=== PATIENT | female | born 1990 | race Caucasian/White ===

== ENCOUNTER 2016-04-08 15:37 | Emergency (ER) | payer OTHER ==
[~2016-04-08 15:37] MED LIST: ACET500C PO; ALPR1TAB3 PO; GLYB125TA PO; IBUP80TA PO; MOTR200T44 PO; NORCOTAB PO; PERC5TAB6 PO; PERCOCET PO; PROZ20CA11 PO; PROZ40CA PO; STUATAB PO; SUCR1TAB56 PO; TRAZ50TA4 PO; TYLE325T5 PO; VITAPRTA PO; [UNRECOGNIZED DRUG - OTHER]
[2016-04-08] MEDS ORDERED: cefTRIAXone SOD 250 MG VIAL (J0696) As Ordered ONE (17:40)
[2016-04-08] MEDS ORDERED: EXPOSURE KIT-ADULT 7 DAY SUPPLY As Ordered ONE (17:40)
[2016-04-08] MEDS ORDERED: metroNIDAZOLE (FLAGYL) 500 MG TAB As Ordered ONE (17:40)
[2016-04-08] MEDS ORDERED: AZITHROMYCIN 250 MG TAB As Ordered ONE (17:41)
[2016-04-08] MEDS ORDERED: ULIPRISTAL ACETATE 30 MG TAB (ELLA) As Ordered ONE (17:41)
[2016-04-08] MEDS ORDERED: LIDOCAINE 1% MDV 20ML VIAL As Ordered ONE (17:41)
[2016-04-08] MEDS ORDERED: [UNRECOGNIZED DRUG - OTHER] As Ordered ONE ×2 (17:41→18:59)
[2016-04-08 17:55] LABS: BASO % 0.6 % (0.0-1.0); EOS # 0.3 K/mm3 (0.0-0.50); EOS % 3.8 % (0.0-3.0); LARGE UNSTAINED CELL # 0.1 K/mm3 (0.0-0.4); LARGE UNSTAINED CELL % 1.3 % (0.0-4.0); LYMPH # 2.2 K/mm3 (1.5-6.5); LYMPH % 30.9 % (24.0-44.0); MEAN CORPUSCULAR HEMOGLOBIN 28.7 pg (27.0-33.0); MEAN CORPUSCULAR HGB CONC 33.2 g/dl (32.0-36.5); MEAN CORPUSCULAR VOLUME 86.7 fl (80.0-96.0); MONO # 0.2 K/mm3 (0.0-0.8); MONO % 3.3 % (0.0-5.0); NEUTROPHILS # 4.2 K/mm3 (1.8-7.7); NEUTROPHILS % 60.1 % (36.0-66.0); PLATELET COUNT, AUTOMATED 168 k/mm3 (150-450); RED CELL DISTRIBUTION WIDTH 13.1 % (11.5-14.5)
[2016-04-08 18:24] LABS: ALBUMIN 3.8 GM/DL (3.2-5.2); ALKALINE PHOSPHATASE 73 U/L (45-117); ALT/SGPT 24 U/L (12-78); ANION GAP 5 MEQ/L (8-16); AST/SGOT 14 U/L (15-37); BILIRUBIN,TOTAL 0.3 MG/DL (0.2-1.0); BLOOD UREA NITROGEN 6 MG/DL (7-18); CALCIUM LEVEL 9.3 MG/DL (8.5-10.1); CARBON DIOXIDE LEVEL 31 MEQ/L (21-32); CHLORIDE LEVEL 108 MEQ/L (98-107); CREATININE FOR GFR 0.74 MG/DL (0.55-1.02); GLOMERULAR FILTRATION RATE > 60.0 (>60); GLUCOSE, FASTING 97 MG/DL (70-105); POTASSIUM SERUM 3.4 MEQ/L (3.5-5.1); SODIUM LEVEL 144 MEQ/L (136-145)
[2016-04-08 19:04] LABS: CONTROL LINE INT CTR LINE PRESENT; HIV SCRN NEGATIVE (NEGATIVE); HIV SCRN1 NEGATIVE (NEGATIVE)
[2016-04-08] MEDS ORDERED: ONDANSETRON 4 MG ORAL DISINTEGRATING TAB (S0181) As Ordered ONE (19:14)
[2016-04-08 19:21] LABS: CONTROL LINE HCG INT CTR LINE PRESENT
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
[2016-04-09 10:30] LABS: HEPATITIS B SURFACE ANTIBODY POSITIVE (POSITIVE)
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
== END 2016-04-08 21:48 | disposition home or self-care (01) ==
LOC: M ED 15:37
DX: T76.21XA Adult sexual abuse, suspected, initial encounter (principal); F41.9 Anxiety disorder, unspecified; F32.9 Major depressive disorder, single episode, unspecified; Z87.19 Personal history of other diseases of the digestive system; F17.210 Nicotine dependence, cigarettes, uncomplicated; Y92.039 Unspecified place in apartment as the place of occurrence of the external cause; Z79.899 Other long term (current) drug therapy
CPT/HCPCS: 36415; 80053; 84703; 85025; 86706; 86780; 86803; 87070; 87077; 87081; 87110; 87186; 87210; 87340; 87529; 87806; 90471; 90744; 96372; 99285; J0696

== ENCOUNTER 2016-06-02 20:28 | Emergency (ER) | payer OTHER ==
[2016-06-02 21:13] LABS: MEAN CORPUSCULAR HEMOGLOBIN 28.9 pg (27.0-33.0); MEAN CORPUSCULAR HGB CONC 31.7 g/dl (32.0-36.5); MEAN CORPUSCULAR VOLUME 91.3 fl (80.0-96.0); RED CELL DISTRIBUTION WIDTH 13.9 % (11.5-14.5); WHITE BLOOD COUNT 7.2 K/mm3 (4.0-10.0)
[2016-06-02 21:52] LABS: METHADONE URINE NEGATIVE (NEGATIVE)
[2016-06-02 22:00] LABS: ALKALINE PHOSPHATASE 85 U/L (45-117); ALT/SGPT 35 U/L (12-78); AST/SGOT 45 U/L (15-37); BILIRUBIN,DIRECT < 0.1 MG/DL (0.0-0.2); BILIRUBIN,TOTAL 0.2 MG/DL (0.2-1.0); BLOOD UREA NITROGEN 11 MG/DL (7-18); CARBON DIOXIDE LEVEL 22 MEQ/L (21-32); CHLORIDE LEVEL 112 MEQ/L (98-107); CREATININE FOR GFR 0.59 MG/DL (0.55-1.02); GLUCOSE, FASTING 73 MG/DL (70-105); POTASSIUM SERUM 4.1 MEQ/L (3.5-5.1); SODIUM LEVEL 145 MEQ/L (136-145); TOTAL PROTEIN 6.9 GM/DL (6.4-8.2)
[2016-06-02 22:28] LABS: CALCIUM LEVEL 8.1 MG/DL (8.5-10.1)
[2016-06-02 22:30] LABS: ALBUMIN 3.6 GM/DL (3.2-5.2); ALBUMIN/GLOBULIN RATIO 1.09 (1.00-1.93); ANION GAP 11 MEQ/L (8-16)
[2016-06-02 22:31] LABS: CONTROL LINE HCG INT CTR LINE PRESENT
[2016-06-02 23:30] VITALS: BP 104/58
== END 2016-06-02 23:50 | disposition home or self-care (01) ==
LOC: M ED 21:49
DX: F32.9 Major depressive disorder, single episode, unspecified (principal); F41.9 Anxiety disorder, unspecified; K21.9 Gastro-esophageal reflux disease without esophagitis; Z79.899 Other long term (current) drug therapy
CPT/HCPCS: 36415; 80048; 80076; 80306; 84443; 84703; 85027; 99285; G0480

== ENCOUNTER → 2017-03-19 | Outpatient (CLI) | payer OTHER ==
[~2017-03-19] MED LIST changes: +PERC5TAB12 PO; -PERC5TAB6 PO; +TRAZ50TA11 PO; -TRAZ50TA4 PO
--- NOTE | 2017-03-19 10:23 | REP ---
Clinical: Acute bronchitis . Comparison: 07/16/2013 . Technique: PA and lateral. Findings: The mediastinum and cardiac silhouette are normal. The lung ross are clear and without acute consolidation, effusion, or pneumothorax. The skeletal structures are intact and normal. Impression: 1. No acute cardiopulmonary process. Signed by Dimitri Colon MD 03/19/2017 10:15 A
[2017-03-19 12:48] LABS: BASO % 0.4 % (0.0-1.0); EOS # 0.1 10^3/uL (0.0-0.50); IMMATURE GRANULOCYTE % 0.7 % (0-0); LYMPH # 2.9 10^3/uL (1.5-6.5); LYMPH % 28.7 % (24.0-44.0); MEAN CORPUSCULAR HEMOGLOBIN 29.6 pg (27.0-33.0); MEAN CORPUSCULAR HGB CONC 33.6 g/dl (32.0-36.5); MEAN CORPUSCULAR VOLUME 88.2 fl (80.0-96.0); MONO # 0.7 10^3/uL (0.0-0.8); MONO % 6.4 % (0.0-5.0); NEUTROPHILS # 6.4 10^3/uL (1.8-7.7); NEUTROPHILS % 62.8 % (36.0-66.0); PLATELET COUNT, AUTOMATED 205 10^3/uL (150-450); RED CELL DISTRIBUTION WIDTH 13.2 % (11.5-14.5); WHITE BLOOD COUNT 10.2 10^3/uL (4.0-10.0)
== END ==
LOC: M LABDRWAD 09:35 → M ADAMS 09:35
PROVIDERS: ATTEND Physician Assistant Medical
DX: J20.9 Acute bronchitis, unspecified (principal)

== ENCOUNTER → 2017-06-14 | Outpatient (CLI) | payer OTHER ==
[2017-06-14 13:35] LABS: BASO % 0.5 % (0.0-1.0); EOS # 0.2 10^3/uL (0.0-0.50); EOS % 1.7 % (0.0-3.0); HEMATOCRIT 42.1 % (36.0-47.0); HEMOGLOBIN 14.2 g/dl (12.0-16.0); IMMATURE GRANULOCYTE % 0.2 % (0-3.0); LYMPH # 1.8 10^3/uL (1.5-6.5); LYMPH % 21.4 % (24.0-44.0); MEAN CORPUSCULAR HGB CONC 33.7 g/dl (32.0-36.5); MONO # 0.4 10^3/uL (0.0-0.8); MONO % 4.3 % (0.0-5.0); NEUTROPHILS # 6.2 10^3/uL (1.8-7.7); NEUTROPHILS % 71.9 % (36.0-66.0); PLATELET COUNT, AUTOMATED 171 10^3/uL (150-450); RED BLOOD COUNT 4.73 10^6/uL (4.00-5.40); RED CELL DISTRIBUTION WIDTH 13.6 % (11.5-14.5); WHITE BLOOD COUNT 8.6 10^3/uL (4.0-10.0)
[2017-06-14 14:06] LABS: GLUCOSE CHALLENGE TEST 1 HOUR 128 MG/DL (LESS THAN 140)
[2017-06-14 14:36] LABS: RUBELLA IgG QUALITATIVE IMMUNE (IMMUNE)
[2017-06-14 14:37] LABS: HBsAg Prenatal NEGATIVE (NEGATIVE)
[2017-06-14 15:05] LABS: HEPATITIS C VIRUS ABY INDEX 0.1 INDEX (<0.8)
[2017-06-14 15:05] LABS: HIV 1&2 SCREEN CENTAUR NEGATIVE (NEGATIVE)
[2017-06-14 15:29] LABS: CHLAMYDIA DNA AMPLIFICATION NEGATIVE (NEGATIVE); GC DNA AMPLIFICATION NEGATIVE (NEGATIVE)
== END ==
LOC: M SMT 07:58
DX: Z34.81 Encounter for supervision of other normal pregnancy, first trimester (principal); Z3A.08 8 weeks gestation of pregnancy
CPT/HCPCS: 82950

== ENCOUNTER → 2017-07-11 | Outpatient (REF) | payer OTHER | LOC: M LAB REF 16:59 | DX: Z34.81 Encounter for supervision of other normal pregnancy, first trimester (principal) ==

== ENCOUNTER 2017-07-25 03:48 | Emergency (ER) | payer OTHER ==
[2017-07-25] MEDS: diphenhydrAMINE INJ 50MG/ML VIAL (J1200) IV (06:34)
[2017-07-25] MEDS: METOCLOPRAMIDE INJ 10MG/2ML VIAL (J2765) IV (06:45)
[2017-07-25] MEDS: NS 1,000 ML IV (06:45)
[2017-07-25 06:52] LABS: BASO % 0.4 % (0.0-1.0); EOS # 0.1 10^3/uL (0.0-0.50); EOS % 1.1 % (0.0-3.0); HEMATOCRIT 36.3 % (36.0-47.0); HEMOGLOBIN 12.7 g/dl (12.0-15.5); IMMATURE GRANULOCYTE % 0.4 % (0-3.0); LYMPH # 1.9 10^3/uL (1.5-6.5); LYMPH % 22.6 % (24.0-44.0); MEAN CORPUSCULAR HEMOGLOBIN 30.4 pg (27.0-33.0); MEAN CORPUSCULAR VOLUME 86.8 fl (80.0-96.0); MONO # 0.5 10^3/uL (0.0-0.8); NEUTROPHILS % 69.5 % (36.0-66.0); PLATELET COUNT, AUTOMATED 146 10^3/uL (150-450); RED BLOOD COUNT 4.18 10^6/uL (4.00-5.40); RED CELL DISTRIBUTION WIDTH 14.4 % (11.5-14.5); WHITE BLOOD COUNT 8.5 10^3/uL (4.0-10.0)
[2017-07-25 07:07] LABS: KETONE, URINE AUTO RFX TRACE mg/dL (NEGATIVE); LEUKOCYTE ESTERASE UR AUTO RFX NEGATIVE (NEGATIVE); MUCUS, URINE RFX SMALL (NEGATIVE); NITRITE, URINE AUTO RFX NEGATIVE (NEGATIVE); RBC, URINE AUTO RFX 3 /HPF (0-3); SPECIFIC GRAVITY UR AUTO RFX 1.018 (1.002-1.035); SQUAM EPITHELIAL CELL UR AURFX 1 /HPF (0-6); WBC, URINE AUTO RFX 2 /HPF (0-3)
[2017-07-25 07:16] LABS: ALBUMIN 3.2 GM/DL (3.2-5.2); ALBUMIN/GLOBULIN RATIO 0.89 (1.00-1.93); ALKALINE PHOSPHATASE 62 U/L (45-117); ALT/SGPT 46 U/L (12-78); ANION GAP 8 MEQ/L (8-16); AST/SGOT 31 U/L (7-37); BILIRUBIN,DIRECT < 0.1 MG/DL (0.0-0.2); BILIRUBIN,TOTAL 0.3 MG/DL (0.2-1.0); BLOOD UREA NITROGEN 8 MG/DL (7-18); CALCIUM LEVEL 8.4 MG/DL (8.5-10.1); CARBON DIOXIDE LEVEL 23 MEQ/L (21-32); CHLORIDE LEVEL 109 MEQ/L (98-107); CK-MB VALUE MASS < 1.0 NG/ML (<3.6); CPK CREATINE PHOSPHOKINASE 67 U/L (26-192); CREATININE FOR GFR 0.45 MG/DL (0.55-1.30); GLOMERULAR FILTRATION RATE > 60.0 (>60); GLUCOSE, FASTING 91 MG/DL (70-100); MAGNESIUM LEVEL 2.1 MG/DL (1.8-2.4); MB/CK RELATIVE INDEX 1.49 (< OR =4); POTASSIUM SERUM 4.1 MEQ/L (3.5-5.1); SODIUM LEVEL 140 MEQ/L (136-145); TOTAL PROTEIN 6.8 GM/DL (6.4-8.2); TROPONIN I < 0.02 NG/ML (< 0.10)
== END 2017-07-25 09:16 | disposition home or self-care (01) ==
LOC: M ED 03:48
DX: O99.89 Other specified diseases and conditions complicating pregnancy, childbirth and the puerperium (principal); R51 Headache; E11.9 Type 2 diabetes mellitus without complications; O99.512 Diseases of the respiratory system complicating pregnancy, second trimester; J45.909 Unspecified asthma, uncomplicated; O99.342 Other mental disorders complicating pregnancy, second trimester; F33.9 Major depressive disorder, recurrent, unspecified; Z3A.15 15 weeks gestation of pregnancy; O99.332 Smoking (tobacco) complicating pregnancy, second trimester; F17.210 Nicotine dependence, cigarettes, uncomplicated
CPT/HCPCS: J1200

== ENCOUNTER 2017-07-29 19:24 | Emergency (ER) | payer OTHER ==
[2017-07-29 20:38] LABS: BASO % 0.2 % (0.0-1.0); EOS % 0.5 % (0.0-3.0); HEMATOCRIT 36.6 % (36.0-47.0); HEMOGLOBIN 12.9 g/dl (12.0-15.5); IMMATURE GRANULOCYTE % 0.2 % (0-3.0); LYMPH # 1.4 10^3/uL (1.5-6.5); LYMPH % 23.8 % (24.0-44.0); MEAN CORPUSCULAR HEMOGLOBIN 30.3 pg (27.0-33.0); MEAN CORPUSCULAR HGB CONC 35.2 g/dl (32.0-36.5); MEAN CORPUSCULAR VOLUME 85.9 fl (80.0-96.0); MONO # 0.5 10^3/uL (0.0-0.8); NEUTROPHILS # 4.1 10^3/uL (1.8-7.7); NEUTROPHILS % 67.3 % (36.0-66.0); PLATELET COUNT, AUTOMATED 130 10^3/uL (150-450); RED BLOOD COUNT 4.26 10^6/uL (4.00-5.40); RED CELL DISTRIBUTION WIDTH 14.5 % (11.5-14.5)
[2017-07-29 20:47] LABS: CALCIUM OXALATE CRYSTALS RFX SMALL; KETONE, URINE AUTO RFX TRACE mg/dL (NEGATIVE); MUCUS, URINE RFX SMALL (NEGATIVE); NITRITE, URINE AUTO RFX NEGATIVE (NEGATIVE); RBC, URINE AUTO RFX 7 /HPF (0-3); SPECIFIC GRAVITY UR AUTO RFX 1.024 (1.002-1.035); SQUAM EPITHELIAL CELL UR AURFX 6 /HPF (0-6)
[2017-07-29 21:00] LABS: LEUKOCYTE ESTERASE UR AUTO RFX 3+ (NEGATIVE); WBC, URINE AUTO RFX 23 /HPF (0-3)
[2017-07-29 21:02] LABS: AMPHETAMINES LEVEL URINE NEGATIVE (NEGATIVE); BARBITURATES URINE NEGATIVE (NEGATIVE); BENZODIAZEPINES URINE NEGATIVE (NEGATIVE); CANNABINOIDS URINE POSITIVE (NEGATIVE); COCAINE METABOLITE URINE NEGATIVE (NEGATIVE); METHADONE URINE NEGATIVE (NEGATIVE); OPIATES URINE NEGATIVE (NEGATIVE); PHENCYCLIDINE URINE NEGATIVE (NEGATIVE)
[2017-07-29 21:19] LABS: ANION GAP 9 MEQ/L (8-16); BLOOD UREA NITROGEN 6 MG/DL (7-18); CALCIUM LEVEL 8.8 MG/DL (8.5-10.1); CARBON DIOXIDE LEVEL 22 MEQ/L (21-32); CHLORIDE LEVEL 104 MEQ/L (98-107); CREATININE FOR GFR 0.56 MG/DL (0.55-1.30); ETHYL ALCOHOL (ETHANOL) < 0.003 % (0.000-0.010); GLOMERULAR FILTRATION RATE > 60.0 (>60); GLUCOSE, FASTING 81 MG/DL (70-100); HCG, SERUM QUANTITATIVE 28651 MIU/ML; MAGNESIUM LEVEL 1.8 MG/DL (1.8-2.4); POTASSIUM SERUM 3.6 MEQ/L (3.5-5.1); SODIUM LEVEL 135 MEQ/L (136-145); THYROID STIMULATING HORMONE 0.952 uIU/ML (0.358-3.740)
[2017-07-29 21:22] LABS: LACTIC ACID SEPSIS PROTOCOL 0.9 MMOL/L (0.4-2.0)
[2017-07-29] MEDS ORDERED: METOCLOPRAMIDE INJ 10MG/2ML VIAL (J2765) As Ordered (21:31)
[2017-07-29] MEDS: METOCLOPRAMIDE INJ 10MG/2ML VIAL (J2765) IV (21:45)
[2017-07-29] MEDS: IPRATROPIUM 0.5MG/ALBUTEROL 2.5MG INH SOL UD 3ML (DUONEB)(J7620) NEB ×2 (21:45→22:59)
[2017-07-29] MEDS: NS 500 ML IV (22:00)
[2017-07-29] MEDS ORDERED: ACETAMINOPHEN TAB 650MG DOSE (2X325MG) As Ordered (22:42)
[2017-07-29] MEDS: ACETAMINOPHEN TAB 650MG DOSE (2X325MG) PO (23:00)
[2017-07-29] MEDS ORDERED: AZITHROMYCIN INJ 500 MG, VIAL MATE ADAPTER 1 EACH in D5W 250 ML IV (23:00)
[2017-07-29] MEDS: AZITHROMYCIN 250 MG TAB PO (23:15)
[2017-07-29] MEDS: methylPREDNISolone INJ 125 MG/2 ML VIAL (J2930) IV (23:47)
== END 2017-07-29 23:48 | disposition home or self-care (01) ==
LOC: M ED 19:24
DX: O99.511 Diseases of the respiratory system complicating pregnancy, first trimester (principal); J20.9 Acute bronchitis, unspecified; Z3A.12 12 weeks gestation of pregnancy; J45.909 Unspecified asthma, uncomplicated; O24.911 Unspecified diabetes mellitus in pregnancy, first trimester; O99.611 Diseases of the digestive system complicating pregnancy, first trimester; K21.9 Gastro-esophageal reflux disease without esophagitis; O99.331 Smoking (tobacco) complicating pregnancy, first trimester; F17.210 Nicotine dependence, cigarettes, uncomplicated; F12.20 Cannabis dependence, uncomplicated
CPT/HCPCS: J2765

== ENCOUNTER → 2017-08-16 | Outpatient (CLI) | payer OTHER | LOC: M RAD 10:51 | DX: Z34.82 Encounter for supervision of other normal pregnancy, second trimester (principal) | CPT/HCPCS: 76816 ==

== ENCOUNTER 2017-08-17 19:17 | Emergency (ER) | payer OTHER ==
[2017-08-17 19:49] LABS: BASO % 0.3 % (0.0-1.0); EOS # 0.1 10^3/uL (0.0-0.50); EOS % 1.4 % (0.0-3.0); HEMATOCRIT 33.6 % (36.0-47.0); HEMOGLOBIN 11.7 g/dl (12.0-15.5); IMMATURE GRANULOCYTE % 0.2 % (0-3.0); LYMPH # 2.4 10^3/uL (1.5-6.5); LYMPH % 26.8 % (24.0-44.0); MEAN CORPUSCULAR HEMOGLOBIN 30.4 pg (27.0-33.0); MEAN CORPUSCULAR HGB CONC 34.8 g/dl (32.0-36.5); MEAN CORPUSCULAR VOLUME 87.3 fl (80.0-96.0); MONO # 0.5 10^3/uL (0.0-0.8); MONO % 5.6 % (0.0-5.0); NEUTROPHILS # 5.9 10^3/uL (1.8-7.7); NEUTROPHILS % 65.7 % (36.0-66.0); PLATELET COUNT, AUTOMATED 134 10^3/uL (150-450); RED BLOOD COUNT 3.85 10^6/uL (4.00-5.40); RED CELL DISTRIBUTION WIDTH 14.6 % (11.5-14.5); WHITE BLOOD COUNT 9.1 10^3/uL (4.0-10.0)
[2017-08-17] MEDS: NS 1,000 ML IV ×2 (20:00→22:14)
[2017-08-17] MEDS: METOCLOPRAMIDE INJ 10MG/2ML VIAL (J2765) IV (20:00)
[2017-08-17 20:18] LABS: ANION GAP 8 MEQ/L (8-16); BLOOD UREA NITROGEN 6 MG/DL (7-18); CALCIUM LEVEL 8.5 MG/DL (8.5-10.1); CARBON DIOXIDE LEVEL 22 MEQ/L (21-32); CHLORIDE LEVEL 110 MEQ/L (98-107); CREATININE FOR GFR 0.45 MG/DL (0.55-1.30); GLOMERULAR FILTRATION RATE > 60.0 (>60); GLUCOSE, FASTING 91 MG/DL (70-100); POTASSIUM SERUM 3.2 MEQ/L (3.5-5.1); SODIUM LEVEL 140 MEQ/L (136-145)
[2017-08-17 21:06] LABS: KETONE, URINE AUTO RFX 2+ mg/dL (NEGATIVE); MUCUS, URINE RFX SMALL (NEGATIVE); NITRITE, URINE AUTO RFX NEGATIVE (NEGATIVE); RBC, URINE AUTO RFX 2 /HPF (0-3); SPECIFIC GRAVITY UR AUTO RFX 1.017 (1.002-1.035); SQUAM EPITHELIAL CELL UR AURFX 2 /HPF (0-6); WBC, URINE AUTO RFX 4 /HPF (0-3)
[2017-08-17 21:08] LABS: LEUKOCYTE ESTERASE UR AUTO RFX TRACE (NEGATIVE)
[2017-08-17] MEDS: POTASSIUM CHLORIDE 10 MEQ SR TABLET PO (23:31)
[2017-08-20 15:50] LABS: BEDSIDE GLUCOSE 113 MG/DL (70-105)
== END 2017-08-17 23:56 | disposition home or self-care (01) ==
LOC: M ED 19:17
DX: O21.0 Mild hyperemesis gravidarum (principal); O99.330 Smoking (tobacco) complicating pregnancy, unspecified trimester; F17.210 Nicotine dependence, cigarettes, uncomplicated; Z3A.00 Weeks of gestation of pregnancy not specified
CPT/HCPCS: J2765

== ENCOUNTER → 2017-09-11 | Outpatient (CLI) | payer OTHER | LOC: M RAD 08:55 | DX: Z34.82 Encounter for supervision of other normal pregnancy, second trimester (principal) | CPT/HCPCS: 76816 ==

== ENCOUNTER → 2017-10-02 | Outpatient (REF) | payer OTHER | LOC: M LAB REF 11:43 | DX: Z34.82 Encounter for supervision of other normal pregnancy, second trimester (principal); Z36.89 Encounter for other specified antenatal screening | CPT/HCPCS: 87086 ==

== ENCOUNTER → 2017-10-30 | Outpatient (CLI) | payer OTHER ==
[2017-10-30 12:57] LABS: HEMATOCRIT 36.4 % (36.0-47.0); HEMOGLOBIN 12.5 g/dl (12.0-15.5); MEAN CORPUSCULAR HEMOGLOBIN 31.2 pg (27.0-33.0); MEAN CORPUSCULAR HGB CONC 34.3 g/dl (32.0-36.5); MEAN CORPUSCULAR VOLUME 90.8 fl (80.0-96.0); PLATELET COUNT, AUTOMATED 149 10^3/uL (150-450); RED BLOOD COUNT 4.01 10^6/uL (4.00-5.40); RED CELL DISTRIBUTION WIDTH 13.8 % (11.5-14.5); WHITE BLOOD COUNT 10.7 10^3/uL (4.0-10.0)
[2017-10-30 13:36] LABS: GLUCOSE CHALLENGE TEST 1 HOUR 142 MG/DL (LESS THAN 140)
== END ==
LOC: M SMT 11:24
DX: Z34.82 Encounter for supervision of other normal pregnancy, second trimester (principal)
CPT/HCPCS: 82950

== ENCOUNTER → 2017-11-13 | Outpatient (REF) | payer OTHER | LOC: M LAB REF 13:56 | DX: Z34.83 Encounter for supervision of other normal pregnancy, third trimester (principal) ==

== ENCOUNTER 2017-11-25 13:12 | Outpatient (CLI) | payer OTHER ==
[2017-11-25 13:34] LABS: BEDSIDE GLUCOSE 173 MG/DL (70-105)
[2017-11-25 14:29] LABS: BASO # 0.1 10^3/uL (0.0-0.2); BASO % 0.4 % (0.0-1.0); EOS # 0.1 10^3/uL (0.0-0.50); HEMATOCRIT 37.3 % (36.0-47.0); HEMOGLOBIN 12.9 g/dl (12.0-15.5); IMMATURE GRANULOCYTE % 0.7 % (0-3.0); LYMPH # 2.3 10^3/uL (1.5-6.5); LYMPH % 18.6 % (24.0-44.0); MEAN CORPUSCULAR HEMOGLOBIN 31.7 pg (27.0-33.0); MEAN CORPUSCULAR HGB CONC 34.6 g/dl (32.0-36.5); MEAN CORPUSCULAR VOLUME 91.6 fl (80.0-96.0); MONO # 0.5 10^3/uL (0.0-0.8); NEUTROPHILS # 9.3 10^3/uL (1.8-7.7); NEUTROPHILS % 75.3 % (36.0-66.0); PLATELET COUNT, AUTOMATED 161 10^3/uL (150-450); RED BLOOD COUNT 4.07 10^6/uL (4.00-5.40); RED CELL DISTRIBUTION WIDTH 13.7 % (11.5-14.5); WHITE BLOOD COUNT 12.4 10^3/uL (4.0-10.0)
[2017-11-25] MEDS: NS 1,000 ML IV (14:56)
[2017-11-25 14:59] LABS: APPEARANCE, URINE HAZY (CLEAR); BACTERIA, URINE AUTO NEGATIVE (NEGATIVE); BILIRUBIN, URINE AUTO NEGATIVE (NEGATIVE); BLOOD, URINE BLOOD NEGATIVE (NEGATIVE); COLOR, URINE YELLOW (YELLOW); GLUCOSE, URINE (UA) AUTO 1+ mg/dL (NEGATIVE); KETONE, URINE AUTO NEGATIVE (NEGATIVE); LEUKOCYTE ESTERASE, URINE AUTO NEGATIVE (NEGATIVE); MUCUS, URINE SMALL (NEGATIVE); NITRITE, URINE AUTO NEGATIVE (NEGATIVE); PROTEIN, URINE AUTO NEGATIVE (NEGATIVE); RBC, URINE AUTO 1 /HPF (0-3); SPECIFIC GRAVITY URINE AUTO 1.011 (1.002-1.035); SQUAMOUS EPITHELIAL CELL UR AU 1 /HPF (0-6); UROBILINOGEN, URINE AUTO 0.2 mg/dL (0.0-2.0); WBC, URINE AUTO 1 /HPF (0-3)
[2017-11-25 15:05] LABS: LACTIC ACID SEPSIS PROTOCOL 1.5 MMOL/L (0.4-2.0)
[2017-11-25 15:07] LABS: ALBUMIN 2.8 GM/DL (3.2-5.2); ALBUMIN/GLOBULIN RATIO 0.78 (1.00-1.93); ALKALINE PHOSPHATASE 110 U/L (45-117); ALT/SGPT 17 U/L (12-78); AMYLASE 70 U/L (25-115); ANION GAP 13 MEQ/L (8-16); AST/SGOT 13 U/L (7-37); BILIRUBIN,TOTAL 0.2 MG/DL (0.2-1.0); BLOOD UREA NITROGEN 7 MG/DL (7-18); CALCIUM LEVEL 8.5 MG/DL (8.5-10.1); CARBON DIOXIDE LEVEL 18 MEQ/L (21-32); CHLORIDE LEVEL 111 MEQ/L (98-107); CREATININE FOR GFR 0.58 MG/DL (0.55-1.30); FREE T4 0.78 NG/DL (0.76-1.46); GLOMERULAR FILTRATION RATE > 60.0 (>60); GLUCOSE, FASTING 119 MG/DL (70-100); LIPASE 230 U/L (73-393); POTASSIUM SERUM 3.4 MEQ/L (3.5-5.1); SODIUM LEVEL 142 MEQ/L (136-145); TOTAL PROTEIN 6.4 GM/DL (6.4-8.2)
[2017-11-25 15:09] LABS: ESTIMATED AVERAGE GLUCOSE 100 MG/DL (60-110); HEMOGLOBIN A1c 5.1 %
[2017-11-25 15:24] LABS: AMPHETAMINES URINE REFLEX NEGATIVE (NEGATIVE); BARBITURATES URINE REFLEX NEGATIVE (NEGATIVE); BENZODIAZEPINES URINE REFLEX NEGATIVE (NEGATIVE); CANNABINOIDS URINE REFLEX NEGATIVE (NEGATIVE); COCAINE METABOLITE URINE REFLE NEGATIVE (NEGATIVE); METHADONE URINE REFLEX NEGATIVE (NEGATIVE); OPIATES URINE REFLEX NEGATIVE (NEGATIVE); PHENCYCLIDINE URINE REFLEX NEGATIVE (NEGATIVE)
[2017-11-25 15:31] LABS: BEDSIDE GLUCOSE 51 MG/DL (70-105)
[2017-11-25 16:35] LABS: BEDSIDE GLUCOSE 110 MG/DL (70-105)
[2017-11-25 17:36] LABS: BEDSIDE GLUCOSE 76 MG/DL (70-105)
[2017-11-25] MEDS: HumuLIN R (REGULAR) INSULIN (NovoLIN R) **100U/ML** PER UNIT SC (18:06)
[2017-11-25] MEDS: HumuLIN N INSULIN (NovoLIN N) PER UNIT SC (18:06)
[2017-11-25 19:36] LABS: BEDSIDE GLUCOSE 82 MG/DL (70-105)
[2017-11-25 21:29] LABS: BEDSIDE GLUCOSE 90 MG/DL (70-105)
[2017-11-25 23:44] LABS: BEDSIDE GLUCOSE 86 MG/DL (70-105)
[2017-11-26 01:37] LABS: BEDSIDE GLUCOSE 92 MG/DL (70-105)
[2017-11-26 03:36] LABS: BEDSIDE GLUCOSE 80 MG/DL (70-105)
[2017-11-26 05:40] LABS: BEDSIDE GLUCOSE 85 MG/DL (70-105)
[2017-11-26 10:12] LABS: BEDSIDE GLUCOSE 135 MG/DL (70-105)
[2017-11-26] MEDS: HumuLIN N INSULIN (NovoLIN N) PER UNIT SC ×2 (10:14→20:09)
[2017-11-26] MEDS: HumuLIN R (REGULAR) INSULIN (NovoLIN R) **100U/ML** PER UNIT SC ×2 (10:14→20:04)
[2017-11-26 15:22] LABS: BEDSIDE GLUCOSE 92 MG/DL (70-105)
[2017-11-26] MEDS: NICOTINE 14 MG/24 HR TRANSDERMAL TD (18:25)
[2017-11-26 19:53] LABS: BEDSIDE GLUCOSE 110 MG/DL (70-105)
== END 2017-11-26 20:58 | disposition home or self-care (01) ==
LOC: M LDO 13:12
DX: O99.89 Other specified diseases and conditions complicating pregnancy, childbirth and the puerperium (principal); Z3A.32 32 weeks gestation of pregnancy; O24.913 Unspecified diabetes mellitus in pregnancy, third trimester; O99.511 Diseases of the respiratory system complicating pregnancy, first trimester; J45.909 Unspecified asthma, uncomplicated; R55 Syncope and collapse
CPT/HCPCS: 59025

== ENCOUNTER → 2017-11-29 | Outpatient (CLI) | payer OTHER | LOC: M SMT 08:02 | DX: O24.414 Gestational diabetes mellitus in pregnancy, insulin controlled (principal); Z3A.33 33 weeks gestation of pregnancy | CPT/HCPCS: 76816 ==

== ENCOUNTER → 2017-12-17 | Outpatient (REF) | payer OTHER | LOC: M LAB REF 13:26 | DX: O24.414 Gestational diabetes mellitus in pregnancy, insulin controlled (principal) ==

== ENCOUNTER → 2017-12-17 | Outpatient (CLI) | payer OTHER | LOC: M SMT 12:32 | DX: O24.414 Gestational diabetes mellitus in pregnancy, insulin controlled (principal); Z3A.35 35 weeks gestation of pregnancy | CPT/HCPCS: 76816 ==

== ENCOUNTER 2017-12-18 13:26 | Inpatient (IN) | payer OTHER ==
[2017-12-18] MEDS: BETAMETHASONE SOLUSPAN 6MG/ML INJ 5ML (J0702) IM (14:15)
[2017-12-18 14:45] LABS: BEDSIDE GLUCOSE 49 MG/DL (70-105)
[2017-12-18] MEDS: HumuLIN N INSULIN (NovoLIN N) PER UNIT SC (15:17)
[2017-12-18 15:39] LABS: BEDSIDE GLUCOSE 105 MG/DL (70-105)
[2017-12-18 19:29] LABS: BEDSIDE GLUCOSE 237 MG/DL (70-105)
[2017-12-18] MEDS: HumuLIN R (REGULAR) INSULIN (NovoLIN R) **100U/ML** PER UNIT SC (19:39)
[2017-12-18 21:22] LABS: BEDSIDE GLUCOSE 193 MG/DL (70-105)
[2017-12-19 06:20] LABS: BEDSIDE GLUCOSE 97 MG/DL (70-105)
[2017-12-19] MEDS: HumuLIN R (REGULAR) INSULIN (NovoLIN R) **100U/ML** PER UNIT SC (07:48)
[2017-12-19] MEDS: HumuLIN N INSULIN (NovoLIN N) PER UNIT SC (07:49)
[2017-12-19 10:02] LABS: BEDSIDE GLUCOSE 86 MG/DL (70-105)
[2017-12-19] MEDS: CALCIUM CARBONATE 500 MG CHEW U/D PO (13:15)
[2017-12-19] MEDS: BETAMETHASONE SOLUSPAN 6MG/ML INJ 5ML (J0702) IM (14:11)
[2017-12-19 15:18] LABS: BEDSIDE GLUCOSE 140 MG/DL (70-105)
[2017-12-19] MEDS ORDERED: INSULIN IV RATE CHANGE DOCUMENTATION ML/HR XX (18:00)
[2017-12-19 18:12] LABS: HEMATOCRIT 35.4 % (36.0-47.0); HEMOGLOBIN 12.2 g/dl (12.0-15.5); MEAN CORPUSCULAR HEMOGLOBIN 31.5 pg (27.0-33.0); MEAN CORPUSCULAR HGB CONC 34.5 g/dl (32.0-36.5); MEAN CORPUSCULAR VOLUME 91.5 fl (80.0-96.0); PLATELET COUNT, AUTOMATED 110 10^3/uL (150-450); RED BLOOD COUNT 3.87 10^6/uL (4.00-5.40); RED CELL DISTRIBUTION WIDTH 13.8 % (11.5-14.5); WHITE BLOOD COUNT 16.5 10^3/uL (4.0-10.0)
[2017-12-19] MEDS: miSOPROStol 50 MCG 1/2 TAB (S0191) SL ×2 (18:21→22:48)
[2017-12-19] MEDS: NS 1,000 ML IV (18:29)
[2017-12-19] MEDS: PENICILLIN G POTASSIUM IV 5 MU in D5W MINI-BAG PLUS 100 ML IV (18:30)
[2017-12-19 18:35] LABS: BEDSIDE GLUCOSE 137 MG/DL (70-105)
[2017-12-19 18:35] LABS: AMPHETAMINES URINE REFLEX NEGATIVE (NEGATIVE); BARBITURATES URINE REFLEX NEGATIVE (NEGATIVE); BENZODIAZEPINES URINE REFLEX NEGATIVE (NEGATIVE); CANNABINOIDS URINE REFLEX NEGATIVE (NEGATIVE); COCAINE METABOLITE URINE REFLE NEGATIVE (NEGATIVE); METHADONE URINE REFLEX NEGATIVE (NEGATIVE); OPIATES URINE REFLEX NEGATIVE (NEGATIVE); PHENCYCLIDINE URINE REFLEX NEGATIVE (NEGATIVE)
[2017-12-19 19:50] LABS: BEDSIDE GLUCOSE 152 MG/DL (70-105)
[2017-12-19 20:35] LABS: BEDSIDE GLUCOSE 143 MG/DL (70-105)
[2017-12-19 21:35] LABS: BEDSIDE GLUCOSE 171 MG/DL (70-105)
[2017-12-19] MEDS: PENICILLIN G POTASSIUM IV 2.5 MU in APPROPRIATE DILUENT 1 EA IV (22:34)
[2017-12-19 22:42] LABS: BEDSIDE GLUCOSE 135 MG/DL (70-105)
[2017-12-20 00:20] LABS: BEDSIDE GLUCOSE 99 MG/DL (70-105)
[2017-12-20 00:49] LABS: BEDSIDE GLUCOSE 147 MG/DL (70-105)
[2017-12-20 01:42] LABS: BEDSIDE GLUCOSE 135 MG/DL (70-105)
[2017-12-20] MEDS: PENICILLIN G POTASSIUM IV 2.5 MU in APPROPRIATE DILUENT 1 EA IV ×5 (02:30→18:35)
[2017-12-20 02:56] LABS: BEDSIDE GLUCOSE 100 MG/DL (70-105)
[2017-12-20 03:49] LABS: BEDSIDE GLUCOSE 110 MG/DL (70-105)
[2017-12-20 04:47] LABS: BEDSIDE GLUCOSE 114 MG/DL (70-105)
[2017-12-20] MEDS: miSOPROStol 50 MCG 1/2 TAB (S0191) SL ×2 (04:59→09:31)
[2017-12-20 05:54] LABS: BEDSIDE GLUCOSE 113 MG/DL (70-105)
[2017-12-20 07:21] LABS: BEDSIDE GLUCOSE 100 MG/DL (70-105)
[2017-12-20] MEDS: INSULIN HUMAN REGULAR 100 UNITS in NS 99 ML IV ×11 (07:38→18:33)
[2017-12-20 08:31] LABS: BEDSIDE GLUCOSE 112 MG/DL (70-105)
[2017-12-20] MEDS: NS 1,000 ML IV ×2 (08:34→18:32)
[2017-12-20 08:35] LABS: BEDSIDE GLUCOSE 102 MG/DL (70-105)
[2017-12-20 09:32] LABS: BEDSIDE GLUCOSE 136 MG/DL (70-105)
[2017-12-20 10:34] LABS: BEDSIDE GLUCOSE 107 MG/DL (70-105)
[2017-12-20 11:34] LABS: BEDSIDE GLUCOSE 103 MG/DL (70-105)
[2017-12-20 12:35] LABS: BEDSIDE GLUCOSE 101 MG/DL (70-105)
[2017-12-20 13:33] LABS: BEDSIDE GLUCOSE 142 MG/DL (70-105)
[2017-12-20] MEDS ORDERED: LR 1,000 ML IV (13:41)
[2017-12-20] MEDS ORDERED: OXYTOCIN 30 UNITS IN 0.9% NaCl 500ML IV BAG (J2590) As Ordered (13:44)
[2017-12-20] MEDS: OXYTOCIN DRIP 30 UNITS in APPROPRIATE DILUENT 1 EA IV ×2 (13:54→22:18)
[2017-12-20 14:33] LABS: BEDSIDE GLUCOSE 125 MG/DL (70-105)
[2017-12-20 15:34] LABS: BEDSIDE GLUCOSE 98 MG/DL (70-105)
[2017-12-20] MEDS ORDERED: FENTANYL 2MCG/ML ROPIVACAINE 0.2% IN 0.9% NACL 200ML IVBAG As Ordered (16:26)
[2017-12-20 16:34] LABS: BEDSIDE GLUCOSE 101 MG/DL (70-105)
[2017-12-20] MEDS: FENTANYL/ROPIVACAINE/NACL BAG 200 ML EPIDURAL (17:15)
[2017-12-20 17:40] LABS: BEDSIDE GLUCOSE 105 MG/DL (70-105)
[2017-12-20] MEDS ORDERED: REFRIGERATOR IV KEYS XX (18:00)
[2017-12-20] MEDS ORDERED: EPIDURAL COMMENT XX (18:00)
[2017-12-20] MEDS ORDERED: ONDANSETRON 4MG/2ML VIAL (J2405) IV ×2 (18:00→22:45)
[2017-12-20] MEDS ORDERED: NALOXONE INJ 0.4 MG/1 ML VIAL (J2310) IV (18:00)
[2017-12-20] MEDS ORDERED: diphenhydrAMINE INJ 50MG/ML VIAL (J1200) IV (18:00)
[2017-12-20] MEDS ORDERED: ePHEDrine SULFATE 25 MG/5 ML(5MG/ML) SYRINGE IV (18:00)
[2017-12-20] MEDS ORDERED: EPIDURAL/PCA KEYS XX (18:00)
[2017-12-20] MEDS ORDERED: LACTATED RINGER'S 1000 ML IV (18:00)
[2017-12-20 18:34] LABS: BEDSIDE GLUCOSE 103 MG/DL (70-105)
[2017-12-20 19:48] LABS: BEDSIDE GLUCOSE 84 MG/DL (70-105)
[2017-12-20 20:35] LABS: BEDSIDE GLUCOSE 91 MG/DL (70-105)
[2017-12-20 21:34] LABS: BEDSIDE GLUCOSE 89 MG/DL (70-105)
[2017-12-20] MEDS ORDERED: DEXTROSE 50% 50 ML SYRINGE IV (22:45)
[2017-12-20] MEDS ORDERED: DOCUSATE SODIUM 100 MG CAP PO (22:45)
[2017-12-20] MEDS ORDERED: METHYLERGONOVINE MALEATE 0.2 MG TAB PO (22:45)
[2017-12-20] MEDS ORDERED: DIBUCAINE 1% OINTMENT 30GM TOP (22:45)
[2017-12-20] MEDS ORDERED: RHOGAM 300 MCG (1500 IU) INJ (J2790) IM (22:45)
[2017-12-20] MEDS ORDERED: MEASLES,MUMPS,RUBELLA VACCINE INJ (MMR-II) (90707) SC (22:45)
[2017-12-20] MEDS ORDERED: GLUCAGON FOR INJ 1 MG VIAL (J1610) SC (22:45)
[2017-12-20] MEDS ORDERED: GLUCOSE 4 GM CHEW TABLET PO (22:45)
[2017-12-21] MEDS: HumaLOG INSULIN (NovoLOG) PER UNIT SC ×2 (02:34→21:00)
[2017-12-21 03:40] LABS: BEDSIDE GLUCOSE 99 MG/DL (70-105)
[2017-12-21] MEDS: PRENATAL VITAMINS CHEWABLE TABLET PO (08:09)
[2017-12-21] MEDS: IBUPROFEN 800 MG TAB PO ×2 (08:10→15:18)
[2017-12-21 09:34] LABS: BEDSIDE GLUCOSE 115 MG/DL (70-105)
[2017-12-21] MEDS: NICOTINE 21MG/24HR 1 EA TRANSDERMAL TD (15:19)
[2017-12-21 15:27] LABS: BEDSIDE GLUCOSE 108 MG/DL (70-105)
[2017-12-21 22:13] LABS: BEDSIDE GLUCOSE 114 MG/DL (70-105)
[2017-12-22] MEDS: ACETAMINOPHEN 500 MG TAB PO (01:23)
[2017-12-22] MEDS: IBUPROFEN 800 MG TAB PO (01:23)
[2017-12-22 04:09] LABS: BEDSIDE GLUCOSE 92 MG/DL (70-105)
[2017-12-22] MEDS: PRENATAL VITAMINS CHEWABLE TABLET PO (08:50)
[2017-12-22] MEDS: NICOTINE 21MG/24HR 1 EA TRANSDERMAL TD (08:51)
[2017-12-22 10:19] LABS: BEDSIDE GLUCOSE 108 MG/DL (70-105)
== END 2017-12-22 14:15 | disposition home or self-care (01) | DRG 560 ==
LOC: M LDO 13:26 → M OBS 12-21 00:59 → M LDI 12-19 17:46
PROVIDERS: Obstetrics & Gynecology
PROC: 3E0DXGC Introduction of Other Therapeutic Substance into Mouth and Pharynx, External Approach (ICD-10-PCS; 2017-12-19)
PROC: 10E0XZZ Delivery of Products of Conception, External Approach (ICD-10-PCS; principal; 2017-12-20)
DX: O24.414 Gestational diabetes mellitus in pregnancy, insulin controlled (principal); R55 Syncope and collapse; Z37.0 Single live birth; Z3A.36 36 weeks gestation of pregnancy; Z91.14 Patient's other noncompliance with medication regimen

== ENCOUNTER 2018-01-05 15:01 | Emergency (ER) | payer OTHER ==
[2018-01-05] MEDS: LIDOCAINE 1% MDV 20ML VIAL SC (17:01)
== END 2018-01-05 18:02 | disposition home or self-care (01) ==
LOC: M ED 15:01
DX: S30.23XA Contusion of vagina and vulva, initial encounter (principal); X58.XXXA Exposure to other specified factors, initial encounter; Y92.89 Other specified places as the place of occurrence of the external cause; J45.909 Unspecified asthma, uncomplicated; K21.9 Gastro-esophageal reflux disease without esophagitis; F33.9 Major depressive disorder, recurrent, unspecified; F41.9 Anxiety disorder, unspecified; F17.200 Nicotine dependence, unspecified, uncomplicated; Z79.899 Other long term (current) drug therapy
CPT/HCPCS: 99283

== ENCOUNTER → 2018-03-07 | Outpatient (CLI) | payer MEDICAID | LOC: M OUTALCOH 07:57 | DX: Z13.9 Encounter for screening, unspecified (principal); F10.20 Alcohol dependence, uncomplicated ==

== ENCOUNTER 2018-03-14 08:34 | Outpatient (RCR) | payer MEDICAID ==
[~2018-03-14 08:34] MED LIST changes: +ALCOPAD22 XX; +AMOX/K; +AZIT-12 PO; +BD I1MIS10 SC; +GLYB25TA PO; +IBUP-1114 PO; +INSULIN NOVOLIN; +INSULIN REGULAR; +INSUNSD SC; +INSURSD SC; +MAPA500T2 PO; +PRED20TA; +PRENTAB16 PO; +REGL10TA6 PO; +TRAZ-160 PO; -TRAZ50TA11 PO; +VENTAER; +[UNRECOGNIZED DRUG - OTHER]
== END 2018-03-24 ==
LOC: M OUTALCOH 08:34
PROVIDERS: ATTEND Psychiatry & Neurology Psychiatry
DX: F10.20 Alcohol dependence, uncomplicated (principal); F17.200 Nicotine dependence, unspecified, uncomplicated

== ENCOUNTER → 2018-04-24 | Outpatient (RCR) | payer MEDICAID | LOC: M OUTALCOH 03-27 07:55 | PROVIDERS: ATTEND Psychiatry & Neurology Psychiatry | DX: F10.20 Alcohol dependence, uncomplicated (principal); F17.200 Nicotine dependence, unspecified, uncomplicated ==

== ENCOUNTER → 2018-05-22 | Outpatient (RCR) | payer MEDICAID | LOC: M OUTALCOH 04-29 15:56 | PROVIDERS: ATTEND Psychiatry & Neurology Psychiatry | DX: F10.20 Alcohol dependence, uncomplicated (principal); F17.200 Nicotine dependence, unspecified, uncomplicated ==

== ENCOUNTER → 2018-06-03 | Outpatient (CLI) | payer MEDICAID ==
[2018-06-03 18:34] LABS: BASO # 0.1 10^3/uL (0.0-0.2); BASO % 0.4 % (0.0-1.0); EOS # 0.2 10^3/uL (0.0-0.50); EOS % 1.3 % (0.0-3.0); HEMOGLOBIN 13.7 g/dl (12.0-15.5); LYMPH # 2.5 10^3/uL (1.5-6.5); LYMPH % 20.6 % (24.0-44.0); MEAN CORPUSCULAR HEMOGLOBIN 29.9 pg (27.0-33.0); MEAN CORPUSCULAR HGB CONC 33.4 g/dl (32.0-36.5); MEAN CORPUSCULAR VOLUME 89.5 fl (80.0-96.0); MONO # 0.7 10^3/uL (0.0-0.8); MONO % 6.2 % (0.0-5.0); NEUTROPHILS # 8.4 10^3/uL (1.8-7.7); PLATELET COUNT, AUTOMATED 180 10^3/uL (150-450); RED BLOOD COUNT 4.58 10^6/uL (4.00-5.40); WHITE BLOOD COUNT 11.9 10^3/uL (4.0-10.0)
[2018-06-03 19:26] LABS: HEMOGLOBIN A1c 5.5 %
[2018-06-03 19:50] LABS: CHLAMYDIA DNA AMPLIFICATION NEGATIVE (NEGATIVE); GC DNA AMPLIFICATION NEGATIVE (NEGATIVE)
[2018-06-04 10:18] LABS: HIV 1&2 SCREEN CENTAUR NEGATIVE (NEGATIVE); RUBELLA IgG QUALITATIVE IMMUNE (IMMUNE)
== END ==
LOC: M SMT 13:14
PROVIDERS: ATTEND Specialist
DX: Z36.89 Encounter for other specified antenatal screening (principal)

== ENCOUNTER 2018-06-20 13:00 | Outpatient (RCR) | payer MEDICAID | END 2018-06-22 | LOC: M OUTALCOH 13:00 | PROVIDERS: ATTEND Psychiatry & Neurology Psychiatry | DX: F10.20 Alcohol dependence, uncomplicated (principal); F17.200 Nicotine dependence, unspecified, uncomplicated ==

== ENCOUNTER → 2018-07-11 | Outpatient (REF) | payer MEDICAID ==
[~2018-07-11] MED LIST changes: +HYDR-3715 PO; -NORCOTAB PO
== END ==
LOC: M LAB REF 16:44
PROVIDERS: ATTEND Obstetrics & Gynecology
DX: O99.341 Other mental disorders complicating pregnancy, first trimester (principal)

== ENCOUNTER → 2018-07-22 | Outpatient (RCR) | payer MEDICAID | LOC: M OUTALCOH 06-27 14:36 | PROVIDERS: ATTEND Psychiatry & Neurology Psychiatry | DX: F10.20 Alcohol dependence, uncomplicated (principal); F17.200 Nicotine dependence, unspecified, uncomplicated ==

== ENCOUNTER → 2018-07-24 | Outpatient (CLI) | payer MEDICAID | LOC: M SMT 12:03 | PROVIDERS: ATTEND Specialist | DX: Z34.82 Encounter for supervision of other normal pregnancy, second trimester (principal); Z3A.00 Weeks of gestation of pregnancy not specified ==

== ENCOUNTER 2018-08-11 14:44 | Outpatient (RCR) | payer MEDICAID | END 2018-08-22 | LOC: M OUTALCOH 14:44 | PROVIDERS: ATTEND Psychiatry & Neurology Psychiatry | DX: F10.20 Alcohol dependence, uncomplicated (principal); F17.200 Nicotine dependence, unspecified, uncomplicated ==

== ENCOUNTER 2018-09-15 16:00 | Outpatient (RCR) | payer MEDICAID ==
[~2018-09-15 16:00] MED LIST changes: -TRAZ-160 PO; +TRAZ-252 PO
== END 2018-09-21 ==
LOC: M OUTALCOH 16:00
PROVIDERS: ATTEND Psychiatry & Neurology Psychiatry
DX: F10.20 Alcohol dependence, uncomplicated (principal); F17.200 Nicotine dependence, unspecified, uncomplicated

== ENCOUNTER 2018-10-13 16:00 | Outpatient (RCR) | payer MEDICAID | END 2018-10-22 | LOC: M OUTALCOH 16:00 | PROVIDERS: ATTEND Psychiatry & Neurology Psychiatry | DX: F10.20 Alcohol dependence, uncomplicated (principal); F17.200 Nicotine dependence, unspecified, uncomplicated ==

== ENCOUNTER 2018-10-28 12:58 | Outpatient (RCR) | payer MEDICAID | END 2018-11-22 | LOC: M OUTALCOH 12:58 | PROVIDERS: ATTEND Psychiatry & Neurology Psychiatry | DX: F10.20 Alcohol dependence, uncomplicated (principal); F17.200 Nicotine dependence, unspecified, uncomplicated ==

== ENCOUNTER → 2018-10-29 | Outpatient (CLI) | payer MEDICAID ==
[2018-10-29 18:19] LABS: HEMATOCRIT 37.9 % (36.0-47.0); HEMOGLOBIN 12.6 g/dl (12.0-15.5); MEAN CORPUSCULAR HEMOGLOBIN 30.9 pg (27.0-33.0); MEAN CORPUSCULAR HGB CONC 33.2 g/dl (32.0-36.5); MEAN CORPUSCULAR VOLUME 92.9 fl (80.0-96.0); PLATELET COUNT, AUTOMATED 125 10^3/uL (150-450); RED BLOOD COUNT 4.08 10^6/uL (4.00-5.40); WHITE BLOOD COUNT 11.3 10^3/uL (4.0-10.0)
[2018-10-29 18:50] LABS: HEMOGLOBIN A1c 5.1 %
== END ==
LOC: M SMT 13:07
PROVIDERS: ATTEND Obstetrics & Gynecology
DX: O24.312 Unspecified pre-existing diabetes mellitus in pregnancy, second trimester (principal)

== ENCOUNTER → 2018-11-21 | Outpatient (CLI) | payer OTHER ==
--- NOTE | 2018-11-21 17:23 | REP ---
Clinical: Maternal diabetes. well-being. Comparison: 10/14/2018 . Findings: Examination demonstrates a single live intrauterine in cephalic presentation. motion is identified by technologist. Placenta is noted anterior and grade one without evidence for placenta previa or abruption. Amniotic fluid volume is normal. Cervix measures 3.3 cm in length and appears closed. Nuchal cord noted. Gestational age by LMP 33 weeks 4 days with SABRA 01/05/2019 . Gestational age by current measurements 35 weeks 0 days with SABRA 12/26/2018 . FHR equals 146 beats per minute. BPD 9.1 cm 36 weeks 5 days HC 32.6 cm 37 weeks 0 days AC 30.2 cm 34 weeks 1 day FL 6.6 cm 34 weeks 0 days HL 5.7 cm 33 weeks 2 days HC/AC ratio 1.08 Estimated weight 2480 grams ( 66 percentile). Amniotic fluid index: 15.7 cm (8.2 - 24.7) Umbilical cord SD ratio: 2.24 (2.00 - 3.00) Anatomical assessment demonstrates normal structures including cranium, choroid plexus, cavum, facial features, lungs, diaphragm, stomach, kidneys/bladder. A single umbilical artery noted. Impression: 1. Single live advanced gestation in cephalic presentation demonstrating appropriate interval growth. 2. Nuchal cord noted. 3. Single umbilical artery. 4. Estimated weight and amniotic fluid index normal. Electronically Signed by Dimitri Colon MD 11/21/2018 05:13 P
== END ==
LOC: M RAD 16:04
PROVIDERS: ATTEND Specialist
DX: Z36.9 Encounter for antenatal screening, unspecified (principal); Z3A.35 35 weeks gestation of pregnancy

== ENCOUNTER 2018-11-25 13:15 | Outpatient (RCR) | payer MEDICAID | END 2018-12-22 | LOC: M OUTALCOH 13:15 | PROVIDERS: ATTEND Psychiatry & Neurology Psychiatry | DX: F10.20 Alcohol dependence, uncomplicated (principal); F17.200 Nicotine dependence, unspecified, uncomplicated ==

== ENCOUNTER → 2018-11-28 | Outpatient (CLI) | payer OTHER ==
--- NOTE | 2018-11-28 14:51 | REP ---
Clinical: Decreased movements. Comparison: 11/21/2018 . Findings: Examination demonstrates a single live intrauterine in cephalic presentation. motion is identified by technologist. Placenta is noted anterior and grade II without evidence for placenta previa or abruption. Amniotic fluid volume is normal. Cervix measures 3.1 cm in length and appears closed. No evidence for nuchal cord. Gestational age by LMP 34 weeks for the with SABRA 01/05/2019 . FHR equals 140 beats per minute. Biophysical profile score: 8/8 Umbilical cord SD ratio: 1.76 (2.00 - 3.00) Amniotic fluid index: 19.1 cm (8.0 - 24.9) Impression: Single live advanced gestation in cephalic presentation. Biophysical profile score and amniotic fluid volume are normal. SD ratio minimally decreased. Electronically Signed by Dimitri Colon MD 11/28/2018 02:42 P
== END ==
LOC: M RAD 14:00
PROVIDERS: ATTEND Obstetrics & Gynecology
DX: O36.8130 Decreased fetal movements, third trimester, not applicable or unspecified (principal); O24.313 Unspecified pre-existing diabetes mellitus in pregnancy, third trimester; Z3A.34 34 weeks gestation of pregnancy

== ENCOUNTER → 2018-12-09 | Outpatient (REF) | payer OTHER | LOC: M LAB REF 12:50 | PROVIDERS: ATTEND Specialist | DX: Z36.85 Encounter for antenatal screening for Streptococcus B (principal); O24.313 Unspecified pre-existing diabetes mellitus in pregnancy, third trimester; Z3A.00 Weeks of gestation of pregnancy not specified ==

== ENCOUNTER → 2018-12-20 | Outpatient (CLI) | payer OTHER ==
[2018-12-20 16:00] LABS: HEMATOCRIT 39.1 % (36.0-47.0); HEMOGLOBIN 13.5 g/dl (12.0-15.5); MEAN CORPUSCULAR HEMOGLOBIN 31.4 pg (27.0-33.0); MEAN CORPUSCULAR HGB CONC 34.5 g/dl (32.0-36.5); MEAN CORPUSCULAR VOLUME 90.9 fl (80.0-96.0); PLATELET COUNT, AUTOMATED 158 10^3/uL (150-450)
== END ==
LOC: M LAB 14:52
PROVIDERS: ATTEND Obstetrics & Gynecology
DX: O24.313 Unspecified pre-existing diabetes mellitus in pregnancy, third trimester (principal)

== ENCOUNTER 2018-12-23 18:54 | Inpatient (IN) | payer OTHER ==
[~2018-12-23] VITALS: Ht 162.6 cm; Wt 89.9 kg
[2018-12-23 20:03] VITALS: BP 108/68
[2018-12-23 21:14] LABS: HEMATOCRIT 38.9 % (36.0-47.0); HEMOGLOBIN 13.4 g/dl (12.0-15.5); MEAN CORPUSCULAR HEMOGLOBIN 31.1 pg (27.0-33.0); MEAN CORPUSCULAR HGB CONC 34.4 g/dl (32.0-36.5); MEAN CORPUSCULAR VOLUME 90.3 fl (80.0-96.0); PLATELET COUNT, AUTOMATED 180 10^3/uL (150-450); RED BLOOD COUNT 4.31 10^6/uL (4.00-5.40); WHITE BLOOD COUNT 15.1 10^3/uL (4.0-10.0)
[2018-12-23] MEDS ORDERED: LACTATED RINGER'S 1000 ML IV STA (21:15)
[2018-12-23] MEDS ORDERED: OXYTOCIN DRIP 30 UNITS in IV 1 EA IV SCH (21:15)
[2018-12-23] MEDS ORDERED: LR 1,000 ML IV SCH (21:15)
[2018-12-23] MEDS ORDERED: NS 1,000 ML IV SCH (21:20)
[2018-12-23] MEDS ORDERED: INSULIN HUMAN REGULAR 100 UNITS in NS 99 ML IV SCH (21:20)
[2018-12-23] MEDS ORDERED: INSULIN IV RATE CHANGE DOCUMENTATION ML/HR XX SCH (21:30)
[2018-12-23 21:31] LABS: AMPHETAMINES URINE REFLEX NEGATIVE (NEGATIVE); BARBITURATES URINE REFLEX NEGATIVE (NEGATIVE); BENZODIAZEPINES URINE REFLEX NEGATIVE (NEGATIVE); CANNABINOIDS URINE REFLEX NEGATIVE (NEGATIVE); COCAINE METABOLITE URINE REFLE NEGATIVE (NEGATIVE); METHADONE URINE REFLEX NEGATIVE (NEGATIVE); OPIATES URINE REFLEX NEGATIVE (NEGATIVE); PHENCYCLIDINE URINE REFLEX NEGATIVE (NEGATIVE)
[2018-12-23 21:44] VITALS: BP 104/63
[2018-12-23 22:11] VITALS: BP 102/58
[2018-12-23 22:41] VITALS: BP 100/57
[2018-12-23 23:11] VITALS: BP 104/56
[2018-12-23 23:41] VITALS: BP 107/59
[2018-12-24] VITALS (34 sets, daily range): BP systolic 93–141; BP diastolic 51–89
[2018-12-24] MEDS ORDERED: FENTANYL 2MCG/ML ROPIVACAINE 0.2% IN 0.9% NACL 100ML IVBAG As Ordered ONE (01:49)
[2018-12-24] MEDS ORDERED: EPIDURAL/PCA KEYS XX PRN (02:57)
[2018-12-24] MEDS ORDERED: REFRIGERATOR IV KEYS XX PRN (02:57)
[2018-12-24] MEDS ORDERED: NALOXONE INJ 0.4 MG/1 ML VIAL (J2310) IV PRN (02:57)
[2018-12-24] MEDS ORDERED: LACTATED RINGER'S 1000 ML IV PRN (02:57)
[2018-12-24] MEDS ORDERED: ePHEDrine SULFATE 25 MG/5 ML(5MG/ML) SYRINGE IV PRN (02:57)
[2018-12-24] MEDS ORDERED: FENTANYL/ROPIVACAINE/NACL BAG 100 ML EPIDURAL SCH (02:57)
[2018-12-24] MEDS ORDERED: EPIDURAL COMMENT XX SCH (02:57)
[2018-12-24] MEDS ORDERED: diphenhydrAMINE INJ 50MG/ML VIAL (J1200) IV PRN (02:57)
[2018-12-24] MEDS ORDERED: LR 1,000 ML IV SCH (05:43)
[2018-12-24] MEDS ORDERED: OXYTOCIN DRIP 30 UNITS in IV 1 EA IV SCH (05:43)
[2018-12-24] MEDS ORDERED: ONDANSETRON 4MG/2ML VIAL (J2405) IV PRN (05:45)
[2018-12-24] MEDS ORDERED: DIBUCAINE 1% OINTMENT 30GM TOP PRN (05:45)
[2018-12-24] MEDS ORDERED: ACETAMINOPHEN TAB 650MG DOSE (2X325MG) PO PRN (05:45)
[2018-12-24] MEDS ORDERED: PROMETHAZINE 25 MG TAB PO PRN (05:45)
[2018-12-24] MEDS ORDERED: IBUPROFEN 600 MG TAB PO PRN (05:45)
[2018-12-24] MEDS ORDERED: DOCUSATE SODIUM 100 MG CAP PO PRN (05:45)
[2018-12-24] MEDS ORDERED: IBUPROFEN 800 MG TAB PO PRN (05:45)
[2018-12-24] MEDS ORDERED: MEASLES,MUMPS,RUBELLA VACCINE INJ (MMR-II) (90707) SC SCH (05:45)
[2018-12-24] MEDS ORDERED: RHOGAM 300 MCG (1500 IU) INJ (J2790) IM SCH (05:45)
[2018-12-24] MEDS: HumuLIN N INSULIN (NovoLIN N) PER UNIT SC SCH (08:07)
[2018-12-24] MEDS: HumuLIN R (REGULAR) INSULIN (NovoLIN R) **100U/ML** PER UNIT SC SCH (08:08)
[2018-12-24] MEDS: PRENATAL VITAMINS CHEWABLE TABLET PO SCH (09:00)
[2018-12-24] MEDS: ACETAMINOPHEN 500 MG TAB PO PRN ×2 (13:53→20:32)
[2018-12-24] MEDS ORDERED: HumuLIN N INSULIN (NovoLIN N) PER UNIT SC SCH (17:30)
[2018-12-24] MEDS ORDERED: HumuLIN R (REGULAR) INSULIN (NovoLIN R) **100U/ML** PER UNIT SC SCH (17:30)
[2018-12-25 06:37] VITALS: BP 119/58
[2018-12-25] MEDS: HumuLIN N INSULIN (NovoLIN N) PER UNIT SC SCH (08:30)
[2018-12-25] MEDS: HumuLIN R (REGULAR) INSULIN (NovoLIN R) **100U/ML** PER UNIT SC SCH (08:32)
[2018-12-25] MEDS: PRENATAL VITAMINS CHEWABLE TABLET PO SCH (08:32)
[2018-12-25] MEDS ORDERED: INFLUENZA QUADRIVALENT PF VACCINE 0.5ML SYRINGE (90686) IM ONE (09:00)
[2018-12-26] MEDS ORDERED: INFLUENZA QUADRIVALENT PF VACCINE 0.5ML SYRINGE (90686) IM ONE (09:00)
== END 2018-12-25 16:45 | disposition home or self-care (01) | DRG 560 ==
LOC: M LDI 18:54 → M OBS 12-24 11:11
PROVIDERS: ADMIT Obstetrics & Gynecology; ATTEND Obstetrics & Gynecology
PROC: 3E033VJ Introduction of Other Hormone into Peripheral Vein, Percutaneous Approach (ICD-10-PCS; 2018-12-23)
PROC: 10E0XZZ Delivery of Products of Conception, External Approach (ICD-10-PCS; principal; 2018-12-24)
DX: O24.12 Pre-existing type 2 diabetes mellitus, in childbirth (principal); Z3A.38 38 weeks gestation of pregnancy; O99.344 Other mental disorders complicating childbirth; F31.9 Bipolar disorder, unspecified; F41.9 Anxiety disorder, unspecified; Z79.4 Long term (current) use of insulin; O99.334 Smoking (tobacco) complicating childbirth; F17.210 Nicotine dependence, cigarettes, uncomplicated; Z37.0 Single live birth

== ENCOUNTER 2018-12-30 13:22 | Outpatient (RCR) | payer MEDICAID | END 2019-01-22 | LOC: M OUTALCOH 13:22 | PROVIDERS: ATTEND Psychiatry & Neurology Psychiatry | DX: F10.20 Alcohol dependence, uncomplicated (principal); F17.200 Nicotine dependence, unspecified, uncomplicated ==

== ENCOUNTER 2019-02-12 09:20 | Outpatient (RCR) | payer MEDICAID ==
[~2019-02-12 09:20] MED LIST changes: +XANA0.25 PO
== END 2019-02-21 ==
LOC: M OUTALCOH 09:20
PROVIDERS: ATTEND Psychiatry & Neurology Psychiatry
DX: F10.20 Alcohol dependence, uncomplicated (principal); F17.200 Nicotine dependence, unspecified, uncomplicated

== ENCOUNTER → 2019-02-18 | Outpatient (REF) | payer MEDICAID | LOC: M LAB REF 15:54 | PROVIDERS: ATTEND Physician Assistant | DX: B34.9 Viral infection, unspecified (principal); R82.998 Other abnormal findings in urine ==

== ENCOUNTER → 2019-06-04 | Outpatient (REF) | payer OTHER, SELFPAY ==
[2019-06-04 12:40] LABS: HEMATOCRIT 42.4 % (36.0-47.0); HEMOGLOBIN 14.3 g/dl (12.0-15.5); MEAN CORPUSCULAR HEMOGLOBIN 30.6 pg (27.0-33.0); MEAN CORPUSCULAR HGB CONC 33.7 g/dl (32.0-36.5); MEAN CORPUSCULAR VOLUME 90.8 fl (80.0-96.0); PLATELET COUNT, AUTOMATED 160 10^3/uL (150-450); RED BLOOD COUNT 4.67 10^6/uL (4.00-5.40); WHITE BLOOD COUNT 9.3 10^3/uL (4.0-10.0)
[2019-06-04 13:04] LABS: HEMOGLOBIN A1c 5.6 %
[2019-06-04 14:07] LABS: CHLAMYDIA DNA AMPLIFICATION NEGATIVE (NEGATIVE); GC DNA AMPLIFICATION NEGATIVE (NEGATIVE)
[2019-06-05 09:25] LABS: HEPATITIS B SURFACE ANTIGEN NEGATIVE (NEGATIVE); HEPATITIS C VIRUS ABY INDEX < 0.0 INDEX (<0.8); HIV 1&2 SCREEN CENTAUR NEGATIVE (NEGATIVE); RUBELLA IgG QUALITATIVE IMMUNE (IMMUNE)
== END ==
LOC: M PLALAB 09:20
PROVIDERS: ATTEND Specialist
DX: Z34.81 Encounter for supervision of other normal pregnancy, first trimester (principal)

== ENCOUNTER → 2019-11-03 | Outpatient (CLI) | payer OTHER ==
[~2019-11-03] MED LIST changes: +ASPI81TA86 PO; +BUSP10TA PO; +INSUN; +INSUR; +LATU20TA PO
== END ==
LOC: M WHC 07:09
PROVIDERS: ATTEND Specialist
DX: O24.113 Pre-existing type 2 diabetes mellitus, in pregnancy, third trimester (principal); Z3A.34 34 weeks gestation of pregnancy

== ENCOUNTER → 2019-11-10 | Outpatient (REF) | payer OTHER | LOC: M SFHCWAGY 10:43 | PROVIDERS: ATTEND Advanced Practice Midwife | DX: O24.913 Unspecified diabetes mellitus in pregnancy, third trimester (principal); Z79.4 Long term (current) use of insulin; Z3A.00 Weeks of gestation of pregnancy not specified ==

== ENCOUNTER 2019-12-02 06:00 | Inpatient (IN) | payer OTHER ==
[~2019-12-02] VITALS: Ht 162.6 cm; Wt 95.8 kg
[~2019-12-02 06:00] MED LIST changes: -ASPI81TA86 PO; -BUSP10TA PO; -INSUN; -INSUR; -LATU20TA PO
[2019-12-02] MEDS ORDERED: LACTATED RINGER'S 1000 ML IV STA (06:26)
[2019-12-02] MEDS ORDERED: LATU20TA PO (06:30)
[2019-12-02] MEDS ORDERED: ASPI81TA86 PO (06:30)
[2019-12-02] MEDS ORDERED: BUSP10TA PO (06:30)
--- NOTE | 2019-12-02 07:45 | HPEPDOC ---
Obstetrical History & Physical General Date of Admission Dec 02, 2019 at 06:00 History of Present Illness Ana is a 29yo with SIUP at 38w1d by lmp presenting for scheduled IOL for A2GDM, insulin controlled. She feels well. Good FM. No VB/LOF/regular ctx. Last took insulin dose last night. No records available to review this morning on admission. Chief Complaint: Induction of labor Information Provided By: Patient Care Care: Good Care Dating Final EDC: Dec 15, 2019 Antepartum Course Diagnos(e)s A2GDM, insulin controlled (and taking ASA). Obesity. Depression/anxiety on buspar/latuda. Tobacco use (has tapered to 10cig/day). Past Medical History Past Obstetrical History : Past Obstetrical History: Multigravida (G1 and G2 ETOP, D&C. G3 term uncomplicated 01/30/14 A2GDM metformin male 6lb. G4 term uncomplicated 12/10/14 A2GDM metformin female 7lb. G5 IOL 36wk with 12/20/17 A2GDM insulin female 5lb. G6 uncomplicated term 12/24/18 iol A2GDM insulin male 6lb. 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 Hx of A2GDM x4. Seasonal allergies. Hx of asthma but no need for inhaler x2 years. eczema as a child, resolved. Surgical History: Breast augmentation (age 17), Dilatation and Curettage (x2), Gallbladder (laparoscopic 2014) Family History Significant Family History: Other (MGM uterine cancer in her 40's) Social History Psychosocial History: Anxiety, Depression * Smoker: current smoker (10cig/day currently. Has smoked 7 years.) Alcohol: Denies Drugs: denies Allergies Coded Allergies: SEASONAL ALLERGIES (Verified Allergy, Mild, 12/02/19) Medications Scheduled Aspirin (Aspir 81) 81 Mg Tablet.dr, 1 TAB PO DAILY for pain Buspirone HCl (Buspirone HCl) 10 Mg Tablet, 10 MG PO BID Lurasidone Hydrochloride (Latuda) 20 Mg Tablet, 1 TAB PO DAILY 21/Iron Fu/Folic Acid ( Complete Caplet) 1 Tab Tab, 1 TAB PO DAILY Miscellaneous Medications Albuterol Sulfate (Ventolin Hfa) 108 Mcg/Act Aer Physical Examination Physical Examination GENERAL: Alert and oriented times three. ABDOMEN: Gravid and non-tender to touch. FETUS: Is vertex (VTX) by sterile vaginal examination (SVE) and TAUS bedside EXTREMITIES: No edema of BLE Laboratory Data 24H LABS Laboratory Tests 2 12/02/19 06:10: Serology Scanned Report Hepatitis B Testing Pertinent Laboratoy Data Blood Type: O+ RBC Antibody Screen: Negative HIV: Negative Hepatitis B: Negative Hepatitis C: Negative Rapid Plasma Reagin: Nonreactive Rubella: Immune Chlamydia/Gonorrhea: Negative Vaginal Examination Dilation: 3 cm Effacement: 30% Station: -3 Cervical Consistency: Medium Cervical Position: Middle Presentation: Cephalic presentation Assessment Heart Rate (FHR): 130 Variability: Moderate Accelerations: Positive Decelerations: None Tocometer Contractions: No Assessment/Plan Assessment Ana is a 29yo with SIUP at 38w1d by lmp presenting for scheduled IOL for A2GDM, insulin controlled. Vitals wnl, afebrile. Cat I FHRT no ctx. SCE 06/16/3. Cephalic by SCE and TAUS. PMhx and course significant for: A2GDM, insulin controlled (and taking ASA). Obesity. Depression/anxiety on buspar/latuda. Tobacco use (has tapered to 10cig/day). Seasonal allergies. Hx of asthma but no need for inhaler x2 years. eczema as a child, resolved. Plan Admit and orient. 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 Diet: consistent carb for breakfast Fingerstick glucose q2hr in latent labor, q1hr in active labor Labs and intravenous (IV) per unit protocol. Counseled on cytotec, coffey bulb, Pitocin and induction of labor (IOL). Lactated Ringers (LR): Bolus 800 mL, then at 125 mL/hr. Anticipate normal spontaneous delivery () Report given to CHRIS Kline who will call over to the clinic to fax GBS result when they open and obtain records for current insulin regimen (since patient does not know dosing) and growth scan results. Discussed possibility of coffey bulb/cytotec, but will leave the plan to her. MD Sotero Sykes Katrina D MD Dec 02, 2019 07:10
[2019-12-02] MEDS ORDERED: INSULIN REGULAR IN 0.9 % NACL 100 UNIT in IV 1 EA IV SCH ×2 (08:33)
[2019-12-02] MEDS ORDERED: PENICILLIN G POTASSIUM IV 5 MU in D5W MINI-BAG PLUS 100 ML IV STA ×2 (08:33→20:35)
[2019-12-02] MEDS ORDERED: INSULIN IV RATE CHANGE DOCUMENTATION ML/HR XX SCH (08:45)
[2019-12-02] MEDS ORDERED: miSOPROStol 50 MCG 1/2 TAB (S0191) PO ONE ×2 (09:00→14:00)
[2019-12-02 09:21] LABS: HEMATOCRIT 35.8 % (36.0-47.0); HEMOGLOBIN 11.9 g/dl (12.0-15.5); MEAN CORPUSCULAR HEMOGLOBIN 30.6 pg (27.0-33.0); MEAN CORPUSCULAR HGB CONC 33.2 g/dl (32.0-36.5); PLATELET COUNT, AUTOMATED 145 10^3/uL (150-450); RED BLOOD COUNT 3.89 10^6/uL (4.00-5.40)
[2019-12-02] MEDS: LR 1,000 ML IV SCH ×3 (09:30→22:00)
[2019-12-02] MEDS: NS 1,000 ML IV SCH ×2 (09:34→18:48)
[2019-12-02] MEDS ORDERED: INSUN (11:51)
[2019-12-02] MEDS ORDERED: INSUR (11:51)
[2019-12-02] MEDS ORDERED: PENICILLIN G POTASSIUM IV 2.5 MU in IV 1 EA IV SCH (12:45)
[2019-12-02] MEDS: busPIRone 10 MG TAB PO SCH ×2 (14:45→21:08)
[2019-12-02] MEDS ORDERED: OXYTOCIN DRIP 30 UNITS in IV 1 EA IV SCH (18:45)
[2019-12-02] MEDS: LURASIDONE 20 MG TAB (LATUDA) PO SCH (21:08)
[2019-12-02] MEDS ORDERED: FENTANYL 2MCG/ML ROPIVACAINE 0.2% IN 0.9% NACL 100ML IVBAG As Ordered ONE (22:13)
[2019-12-02] MEDS ORDERED: ePHEDrine SULFATE 25 MG/5 ML(5MG/ML) SYRINGE As Ordered ONE (23:45)
[2019-12-03] MEDS ORDERED: ONDANSETRON 4MG/2ML VIAL IV PRN (00:15)
[2019-12-03] MEDS ORDERED: REFRIGERATOR IV KEYS XX PRN (00:15)
[2019-12-03] MEDS ORDERED: LACTATED RINGER'S 1000 ML IV PRN (00:15)
[2019-12-03] MEDS ORDERED: ePHEDrine SULFATE 25 MG/5 ML(5MG/ML) SYRINGE IV PRN (00:15)
[2019-12-03] MEDS ORDERED: NALOXONE INJ 0.4MG/1ML VIAL (J2310 PER 1MG) IV PRN (00:15)
[2019-12-03] MEDS ORDERED: EPIDURAL COMMENT XX SCH (00:15)
[2019-12-03] MEDS ORDERED: FENTANYL/ROPIVACAINE/NACL BAG 100 ML EPIDURAL SCH (00:15)
[2019-12-03] MEDS ORDERED: EPIDURAL/PCA KEYS XX PRN (00:15)
[2019-12-03] MEDS ORDERED: diphenhydrAMINE 50MG/ML VIAL (J1200) IV PRN (00:15)
[2019-12-03] MEDS ORDERED: PENICILLIN G POTASSIUM IV 2.5 MU in IV 1 EA IV SCH (01:00)
[2019-12-03] MEDS ORDERED: ACETAMINOPHEN TAB 650MG DOSE (2X325MG) PO PRN (02:30)
[2019-12-03] MEDS ORDERED: OXYTOCIN DRIP 30 UNITS in IV 1 EA IV SCH (02:30)
[2019-12-03] MEDS ORDERED: METHYLERGONOVINE MALEATE 0.2 MG TAB PO PRN (02:30)
[2019-12-03] MEDS ORDERED: RHOGAM 300 MCG (1500 IU) INJ (J2790) IM SCH (02:30)
[2019-12-03] MEDS ORDERED: DOCUSATE SODIUM 100 MG CAP PO PRN (02:30)
[2019-12-03] MEDS ORDERED: ACETAMINOPHEN 500 MG TAB PO PRN (02:30)
[2019-12-03] MEDS ORDERED: IBUPROFEN 600MG TAB PO PRN (02:30)
[2019-12-03] MEDS ORDERED: MEASLES,MUMPS,RUBELLA VACCINE INJ (MMR-II) (90707) SC SCH (02:30)
[2019-12-03] MEDS ORDERED: DIBUCAINE 1% OINTMENT 30GM TOP PRN (02:30)
[2019-12-03 06:00] VITALS: BP 121/70
[2019-12-03 08:30] VITALS: BP 121/70
[2019-12-03] MEDS: IBUPROFEN 800 MG TAB PO PRN (08:34)
[2019-12-03] MEDS: PRENATAL VITAMINS CHEWABLE TABLET PO SCH (09:00)
[2019-12-03] MEDS: busPIRone 10 MG TAB PO SCH ×2 (09:17→21:01)
[2019-12-03 18:00] VITALS: BP 138/73
[2019-12-03] MEDS: LURASIDONE 20 MG TAB (LATUDA) PO SCH (21:00)
[2019-12-04 05:26] VITALS: BP 136/62
[2019-12-04] MEDS: PRENATAL VITAMINS CHEWABLE TABLET PO SCH (08:26)
[2019-12-04] MEDS: busPIRone 10 MG TAB PO SCH (08:26)
[2019-12-04] MEDS: IBUPROFEN 800 MG TAB PO PRN (15:53)
[2019-12-04] MEDS ORDERED: INFLUENZA QUADRIVALENT PF VACCINE 0.5ML SYRINGE IM ONE (18:00)
== END 2019-12-04 19:35 | disposition home or self-care (01) | DRG 560 ==
LOC: M LDI 06:00 → M OBS 12-03 05:10
PROVIDERS: ADMIT Obstetrics & Gynecology; ATTEND Obstetrics & Gynecology
PROC: 3E0DXGC Introduction of Other Therapeutic Substance into Mouth and Pharynx, External Approach (ICD-10-PCS; 2019-12-02)
PROC: 10E0XZZ Delivery of Products of Conception, External Approach (ICD-10-PCS; principal; 2019-12-03)
DX: O24.424 Gestational diabetes mellitus in childbirth, insulin controlled (principal); Z37.0 Single live birth; E66.9 Obesity, unspecified; O99.214 Obesity complicating childbirth; Z3A.38 38 weeks gestation of pregnancy; F17.210 Nicotine dependence, cigarettes, uncomplicated; O99.334 Smoking (tobacco) complicating childbirth; F41.9 Anxiety disorder, unspecified; F32.9 Major depressive disorder, single episode, unspecified; O99.344 Other mental disorders complicating childbirth; O69.81X0 Labor and delivery complicated by cord around neck, without compression, not applicable or unspecified

== ENCOUNTER → 2020-02-23 | Outpatient (REF) | payer OTHER ==
[~2020-02-23] MED LIST changes: +ASPI81TA86 PO; +BUSP10TA PO; +INSUN; +INSUR; +LATU20TA PO
== END ==
LOC: M PLALAB 21:32
PROVIDERS: ATTEND Specialist
DX: N92.6 Irregular menstruation, unspecified (principal)

== ENCOUNTER → 2020-02-25 | Outpatient (REF) | payer OTHER | LOC: M PLALAB 14:57 | PROVIDERS: ATTEND Specialist | DX: N92.6 Irregular menstruation, unspecified (principal) ==

== ENCOUNTER → 2020-02-27 | Outpatient (CLI) | payer OTHER | LOC: M LAB 14:29 | PROVIDERS: ATTEND Specialist | DX: N92.6 Irregular menstruation, unspecified (principal) ==

== ENCOUNTER → 2020-04-12 | Outpatient (CLI) | payer OTHER | LOC: M PLALAB 09:30 | PROVIDERS: ATTEND Obstetrics & Gynecology | DX: O09.891 Supervision of other high risk pregnancies, first trimester (principal) ==

== ENCOUNTER → 2020-06-01 | Outpatient (CLI) | payer OTHER ==
[~2020-06-01] MED LIST changes: +GLYB2.5T7 PO; -GLYB25TA PO
--- NOTE | 2020-06-01 15:49 | REP ---
INDICATION: ANATOMY COMPARISON: None. TECHNIQUE: Transabdominal obstetrical ultrasound with color Doppler evaluation. FINDINGS: Examination demonstrates a single live intrauterine in cephalic presentation. motion is identified by technologist. Placenta is noted anterior and grade 1 without evidence for placenta previa or abruption. Amniotic fluid volume is normal. Cervix measures 3.6 cm in length and appears closed. Maternal left adnexal cyst measuring 8.8 x 6.3 x 7.9 cm.. Gestational age by LMP 19 weeks 0 days with SABRA 10/26/2020. Gestational age by current measurements 18 weeks 5 days with SABRA 10/28/2020. FHR equals 158 beats per minute. BPD: 4.2 cm at 18 weeks 6 days HC: 15.4 cm at 18 weeks 3 days AC: 13.4 cm at 18 weeks 6 days FL: 2.8 cm at 18 weeks 5 days HL: 2.8 cm at there is 19 weeks 0 days HC/AC: 1.15 Estimated weight 255 grams (31stpercentile). Anatomical assessment demonstrates normal structures including cranium, choroid plexus, cavum, cerebellum/posterior fossa, facial features, lungs, four-chamber heart/ventricular outflow tracts, diaphragm, stomach, cord insertion/three-vessel cord, kidneys/bladder, and extremities. IMPRESSION: 1. Single live intrauterine in cephalic presentation demonstrating appropriate estimated weight. 2. Limited evaluation of the spine may warrant follow-up. Remainder of the anatomical assessment is complete and normal. 3. Large left maternal adnexal cyst. <Electronically signed by Dimitri Colon > 06/01/20 [id number]
== END ==
LOC: M WHC 13:47
PROVIDERS: ATTEND Specialist
DX: Z34.82 Encounter for supervision of other normal pregnancy, second trimester (principal)

== ENCOUNTER → 2020-06-06 | Outpatient (CLI) | payer OTHER | LOC: M WHC 08:27 | PROVIDERS: ATTEND Obstetrics & Gynecology | DX: Z34.82 Encounter for supervision of other normal pregnancy, second trimester (principal); Z3A.19 19 weeks gestation of pregnancy ==

== ENCOUNTER → 2020-06-17 | Outpatient (CLI) | payer OTHER ==
--- NOTE | 2020-06-17 08:08 | REP ---
INDICATION: F/U ANATOMY. COMPARISON: 06/01/2020. TECHNIQUE: Multiple sonographic images of the gravid uterus. FINDINGS: On the prior study the spine could not be optimally demonstrated. On the study today the spine is optimally demonstrated and is unremarkable. On the prior study there was a large cyst in the maternal adnexa measuring 8.8 x 7.9 x 6.3 cm. This cyst is again present today and measures 7.6 x 7.3 x 7.0 cm. There is a single intrauterine gestation in a cephalic presentation. The placenta is anterior with grade 1 maturity. There is no previa. The umbilical cord inserts centrally on the placenta. There is a three-vessel cord. heart rate is 146 beats per minute. The me at fluid volume subjectively is normal. The composite ultrasound gestational age today is 21 weeks 1 day with an SABRA of 10/27/2020. Gestational age by the 1st ultrasound is 21 weeks 2 days with an SABRA of 10/26/2020. weight is 436 g/0 lb, 15 oz. This is the 61st percentile for 21 weeks 2 days. The remainder of the anatomy was previously unremarkable. Today the spine is optimally demonstrated and unremarkable. No anomalies are identified. IMPRESSION: No anomalies are identified. The spine is adequately demonstrated today and is unremarkable. There is again a large cyst in the maternal left adnexa today measuring 7.6 x 7.3 x 7.0 cm. <Electronically signed by Luis Cervantes > 06/17/20 [id number]
== END ==
LOC: M WHC 06:55
PROVIDERS: ATTEND Obstetrics & Gynecology
DX: Z36.9 Encounter for antenatal screening, unspecified (principal); Z3A.21 21 weeks gestation of pregnancy

== ENCOUNTER → 2020-06-28 | Outpatient (REF) | payer OTHER | LOC: M PLALAB 18:48 | PROVIDERS: ATTEND Obstetrics & Gynecology | DX: Z34.82 Encounter for supervision of other normal pregnancy, second trimester (principal); Z3A.23 23 weeks gestation of pregnancy ==

== ENCOUNTER → 2020-06-30 | Outpatient (CLI) | payer OTHER | LOC: M WHC 13:47 | PROVIDERS: ATTEND Obstetrics & Gynecology | DX: O24.112 Pre-existing type 2 diabetes mellitus, in pregnancy, second trimester (principal); Z3A.00 Weeks of gestation of pregnancy not specified ==

== ENCOUNTER → 2020-08-11 | Outpatient (REF) | payer OTHER ==
[2020-08-11 10:38] LABS: HEMATOCRIT 38.5 % (36.0-47.0); HEMOGLOBIN 12.6 g/dl (12.0-15.5); MEAN CORPUSCULAR HEMOGLOBIN 30.5 pg (27.0-33.0); MEAN CORPUSCULAR HGB CONC 32.7 g/dl (32.0-36.5); MEAN CORPUSCULAR VOLUME 93.2 fl (80.0-96.0); PLATELET COUNT, AUTOMATED 171 10^3/uL (150-450); RED BLOOD COUNT 4.13 10^6/uL (4.00-5.40); WHITE BLOOD COUNT 17.7 10^3/uL (4.0-10.0)
[2020-08-11 10:55] LABS: HEMOGLOBIN A1c 5.3 %
== END ==
LOC: M PLALAB 08:56
PROVIDERS: ATTEND Obstetrics & Gynecology
DX: Z34.92 Encounter for supervision of normal pregnancy, unspecified, second trimester (principal); Z3A.23 23 weeks gestation of pregnancy

== ENCOUNTER → 2020-09-01 | Outpatient (CLI) | payer OTHER ==
--- NOTE | 2020-09-02 04:37 | REP ---
INDICATION: PRE EXISTING DIABETES,GROWTH COMPARISON: 06/17/2020 TECHNIQUE: Transabdominal obstetrical ultrasound with color Doppler evaluation. FINDINGS: Examination demonstrates a single live intrauterine in cephalic presentation. motion is identified by technologist. Placenta is noted anterior and grade 2 without evidence for placenta previa or abruption. Amniotic fluid volume is normal. Cervix measures 3.5 cm in length and appears closed.. Selected gestational age: 32 weeks 1 day with SABRA 10/26/2020. Gestational age by current measurements 31 weeks 6 days with SABRA . FHR equals 132 beats per minute. BPD: 8.0 cm at 31 weeks 6 days HC: 29.3 cm at 32 weeks 2 days AC: 27.3 cm at 31 weeks 3 days FL: 6.1 cm at 31 weeks 4 days HL: 5.5 cm at 32 weeks 0 days HC/AC: 1.07 Estimated weight 1793 grams (23rdpercentile). MAREK: 10.7 cm Umbilical artery SD ratio: 3.37 IMPRESSION: Single live advanced gestation in cephalic presentation demonstrating appropriate interval growth. <Electronically signed by Dimitri Colon > 09/02/20 [id number]
== END ==
LOC: M WHC 12:42
PROVIDERS: ATTEND Obstetrics & Gynecology
DX: O24.312 Unspecified pre-existing diabetes mellitus in pregnancy, second trimester (principal); Z3A.32 32 weeks gestation of pregnancy

== ENCOUNTER → 2020-09-22 | Outpatient (REF) | payer OTHER | LOC: M SFHCWAGY 17:25 | PROVIDERS: ATTEND Obstetrics & Gynecology | DX: Z34.83 Encounter for supervision of other normal pregnancy, third trimester (principal); Z3A.35 35 weeks gestation of pregnancy ==

== ENCOUNTER → 2020-10-04 | Outpatient (CLI) | payer OTHER ==
[~2020-10-04] MED LIST changes: +GABA-283 PO; +LAMI25TA PO; +METF500T13 PO; +TRAM1CAP15 PO
== END ==
LOC: M RAD 16:10
PROVIDERS: ATTEND Obstetrics & Gynecology
DX: O24.312 Unspecified pre-existing diabetes mellitus in pregnancy, second trimester (principal)

== ENCOUNTER 2020-10-12 17:22 | Inpatient (IN) | payer OTHER ==
[2020-10-12] VITALS (12 sets, daily range): BP systolic 94–135; BP diastolic 52–76
[~2020-10-12] VITALS: Ht 162.6 cm; Wt 86.3 kg
[~2020-10-12 17:22] MED LIST changes: -GABA-283 PO; -LAMI25TA PO; -METF500T13 PO; -TRAM1CAP15 PO
[2020-10-12] MEDS ORDERED: OXYTOCIN INJ 10 UNITS/ML VIAL (J2590) IM PRN (18:25)
[2020-10-12] MEDS ORDERED: LIDOCAINE 1% MDV 20ML VIAL INFIL PRN (18:25)
[2020-10-12] MEDS ORDERED: INSULIN IV RATE CHANGE DOCUMENTATION ML/HR XX SCH (18:25)
[2020-10-12] MEDS ORDERED: NS 1,000 ML IV SCH (18:25)
[2020-10-12] MEDS ORDERED: METHYLERGONOVINE MALEATE 0.2 MG/ML VIAL (J2210) IM PRN (18:25)
[2020-10-12] MEDS ORDERED: INSULIN REGULAR IN 0.9 % NACL 100 UNIT in IV 1 EA IV SCH ×2 (18:25)
[2020-10-12] MEDS ORDERED: OXYTOCIN DRIP 30 UNITS in IV 1 EA IV PRN (18:25)
[2020-10-12] MEDS ORDERED: OXYTOCIN DRIP 30 UNITS in IV 1 EA IV SCH (18:25)
[2020-10-12] MEDS ORDERED: INSUR (18:30)
[2020-10-12 18:37] LABS: BASO % 0.3 % (0.0-1.0); EOS # 0.1 10^3/uL (0.0-0.5); EOS % 0.9 % (0.0-3.0); HEMATOCRIT 36.4 % (36.0-47.0); HEMOGLOBIN 12.4 g/dl (12.0-15.5); LYMPH % 23.1 % (24.0-44.0); MEAN CORPUSCULAR HEMOGLOBIN 30.9 pg (27.0-33.0); MEAN CORPUSCULAR HGB CONC 34.1 g/dl (32.0-36.5); MEAN CORPUSCULAR VOLUME 90.8 fl (80.0-96.0); MONO # 0.6 10^3/uL (0.0-0.8); MONO % 4.8 % (2.0-8.0); NEUTROPHILS # 9.2 10^3/uL (1.5-8.5); NEUTROPHILS % 70.2 % (36.0-66.0); PLATELET COUNT, AUTOMATED 170 10^3/uL (150-450); RED BLOOD COUNT 4.01 10^6/uL (4.00-5.40)
--- NOTE | 2020-10-12 19:17 | HPE ---
HISTORY AND PHYSICAL DATE OF ADMISSION: 10/12/2020 ADMITTING DIAGNOSIS: Ana is a 30-year-old 8, para 4-1-2-5 at 38 weeks gestation, EDC of 10/26/2020 based on last menstrual period and confirmed by first trimester ultrasound. She presents to labor and delivery today for induction of labor due to insulin dependent diabetes. She denies vaginal bleeding, leakage of fluid, and painful contractions. The fetus has been active. [facility] care [facility] at [facility] in the first trimester. Her course was complicated by preexisting insulin dependent diabetes. Her current regimen is in the a.m., 22 units of NPH with 16 units of regular, and in the p.m. 16 units of NPH with 12 units of regular. 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 Prior history of chlamydia and HPV as well as smoking throughout her . OBSTETRIC HISTORY: 1. In 2010, elective termination of . 2. In 2012, elective termination of . 3. January 2014, 39 weeks gestation, 6 pound, 15 ounce male, vaginal delivery. 4. November 2014, 39 weeks, 7 pound 9 ounce female, vaginal delivery. 5. January 2018, 36 weeks, a 5 pound female, vaginal delivery. 6. December 24, 2018, 38 weeks and 2 days, a 6 pound, 14 ounce male, vaginal delivery. 7. December 03, 2019, 38 weeks and 2 days a 7 pound, 3 ounce male, vaginal delivery. OBSTETRIC LABS: The patient has never had her labs drawn. GBS is negative. PAST MEDICAL HISTORY: 1. Diabetes. 2. Asthma. 3. Obsessive-compulsive disorder. 4. Depression. 5. Anxiety. 6. Bipolar. 7. GERD. 8. Abnormal Pap smear. 9. Positive HPV. SURGERIES: 1. Breast reduction. 2. Elective termination. 3. Colposcopy. 4. Cholecystectomy. FAMILY HISTORY: Myocardial infarction, insulin dependent diabetes, endometrial cancer, hypertension, thyroid cancer, hyperlipidemia. SOCIAL HISTORY: The patient is single. There is a family member for support. She is a current smoker approximately half a pack per day per her report. She denies alcohol and drug use. She does have a history of chlamydia. She denies any current domestic abuse. ALLERGIES: SEASONAL. CURRENT MEDICATIONS: vitamin as well as her current insulin regimen in the a.m., 22 units of NPH, 16 units of regular, in the p.m. 16 units of NPH, with 12 units of regular insulin. PHYSICAL EXAMINATION: Vital signs: Temperature 98.5, pulse 107, respirations 20, blood pressure 130/76. General: She is alert and oriented times three. Smiling, pleasant and talkative. heart rate is 125 with moderate variability, positive accelerations, negative decelerations. There is an occasional contraction. Her abdomen is gravid, cephalic presentation with estimated weight 2800 gm. Sterile Vaginal Exam: 3-4 cm dilated, 50% effaced, -2 station, posterior and soft. Positive bloody show. ASSESSMENT: Intrauterine at 38 weeks. Insulin dependent diabetes. heart rate category 1. PLAN: Admit the patient to labor and delivery. Insulin drip per protocol. Clear liquid diet. Routine laboratories. The patient is desiring an epidural when she is uncomfortable. Will likely consider assisted rupture of membranes to augment her labor. Risks, benefits, and alternatives have been reviewed with the patient. She has had all of her questions answered and she has been verbally consented for emergency surgery and blood products if they are necessary. I do anticipate labor and a spontaneous vaginal delivery.
[2020-10-12 19:47] LABS: HIV 1&2 SCREEN CENTAUR NEGATIVE (NEGATIVE)
[2020-10-12] MEDS ORDERED: FENTANYL 2MCG/ML ROPIVACAINE 0.2% IN 0.9% NACL 100ML IVBAG As Ordered ONE (23:27)
[2020-10-13] VITALS (8 sets, daily range): BP systolic 99–146; BP diastolic 59–87
[2020-10-13] MEDS ORDERED: NALOXONE INJ 0.4MG/1ML VIAL (J2310 PER 1MG) IV PRN (00:30)
[2020-10-13] MEDS ORDERED: LACTATED RINGER'S 1000 ML IV PRN (00:30)
[2020-10-13] MEDS ORDERED: FENTANYL/ROPIVACAINE/NACL BAG 100 ML EPIDURAL SCH (00:30)
[2020-10-13] MEDS ORDERED: diphenhydrAMINE 50MG/ML VIAL (J1200) IV PRN (00:30)
[2020-10-13] MEDS ORDERED: EPIDURAL/PCA KEYS XX PRN (00:30)
[2020-10-13] MEDS ORDERED: EPIDURAL COMMENT XX SCH (00:30)
[2020-10-13] MEDS ORDERED: ePHEDrine SULFATE 25 MG/5 ML(5MG/ML) SYRINGE IV PRN (00:30)
[2020-10-13] MEDS ORDERED: ONDANSETRON 4MG/2ML VIAL IV PRN (00:30)
[2020-10-13] MEDS ORDERED: REFRIGERATOR IV KEYS XX PRN (00:30)
[2020-10-13] MEDS ORDERED: ACETAMINOPHEN 500 MG TAB PO PRN (00:55)
[2020-10-13] MEDS ORDERED: IBUPROFEN 800 MG TAB PO PRN (00:55)
[2020-10-13] MEDS ORDERED: DOCUSATE SODIUM 100MG CAPSULE PO PRN (00:55)
[2020-10-13] MEDS ORDERED: DIBUCAINE 1% OINTMENT 30GM TOP PRN (00:55)
[2020-10-13] MEDS ORDERED: IBUPROFEN 600MG TAB PO PRN (00:55)
[2020-10-13] MEDS ORDERED: METHYLERGONOVINE MALEATE 0.2 MG TAB PO PRN (00:55)
[2020-10-13] MEDS ORDERED: RHOGAM 300 MCG (1500 IU) INJ (J2790) IM SCH (00:55)
[2020-10-13] MEDS ORDERED: MEASLES,MUMPS,RUBELLA VACCINE INJ (MMR-II) (90707) SC SCH (00:55)
[2020-10-13] MEDS ORDERED: ACETAMINOPHEN TAB 650MG DOSE (2X325MG) PO PRN (00:55)
--- NOTE | 2020-10-13 05:57 | DN ---
DELIVERY NOTE DATE OF DELIVERY: 10/13/2020 TIME OF : GENDER: APGARS: LACERATIONS: ANESTHESIA: ESTIMATED BLOOD LOSS: 250 mL. COUNTS: DESCRIPTION OF DELIVERY: Ana is a 30-year-old 8 para 5-1-2-6 now who was admitted to labor and delivery for induction of labor due to pre-gestational diabetes. IV Pitocin was started and labor ensued. She did request an epidural for her labor coping. I was called to room 6 for a nurse-controlled delivery during the epidural administration. I arrived to on maternal abdomen crying and active. Cord was clamped times 2 and cut by myself. Cord blood was obtained. Spontaneous expulsion of an intact placenta with three-vessel cord by Martins mechanism was at 0039. Uterine hemostasis achieved with IV Pitocin rapid infusion and uterine fundal massage. Estimated blood loss was 250 mL. Perineum and vagina inspected and noted to be intact. female weighed 2620 grams, 5 pounds 12 ounces; Apgars 9/9. Mom is going to bottle feed her daughter and has named her Chester. At the close of delivery, lap counts and instrument counts were correct and verified.
[2020-10-13] MEDS: metFORMIN (GLUCOPHAGE) 500MG TAB PO SCH ×2 (08:08→18:20)
[2020-10-13] MEDS: PRENATAL VITAMINS CHEWABLE TABLET PO SCH (08:39)
[2020-10-14 05:55] VITALS: BP 116/63
[2020-10-14] MEDS: PRENATAL VITAMINS CHEWABLE TABLET PO SCH (08:13)
[2020-10-14] MEDS: metFORMIN (GLUCOPHAGE) 500MG TAB PO SCH ×2 (08:13→18:16)
--- NOTE | 2020-10-14 08:32 | IPNPDOC ---
Progress Note Date of Service: Oct 14, 2020 Day#: 1 Progress Note SUBJECT: Status post . She has been ambulating, voiding spontaneously with out issue and tolerating regular diet. Lochia decreasing/minimal. Pain is well- controlled. Denies headache, visual changes, right upper quadrant pain, shortness breath or chest pain. OBJECTIVE: VITAL SIGNS: Within normal limits, afebrile. Alert and oriented times three. Abdomen: Fundus firm at U-2. Soft, NTTP. ASSESSMENT: Status post uncomplicated spontaneous vaginal delivery. Vitals within normal limits, afebrile, hemodynamically stable with no evidence of infection. PLAN: Discharge to home today. Tylenol and Motrin for pain. Routine instructions/precautions reviewed. Routine PP visit in 6 weeks in clinic. VS, I&O, 24H, Fishbone Vital Signs/I&O Vital Signs Date Time Temp Pulse Resp B/P (MAP) Pulse Ox O2 Delivery O2 Flow Rate FiO2 10/14/20 05:55 98.2 68 16 116/63 (80) 97 Room Air OLI MAZA DO Oct 14, 2020 08:31
[2020-10-14] MEDS ORDERED: METF500T13 PO (08:33)
[2020-10-14 18:10] VITALS: BP 132/66
== END 2020-10-14 19:55 | disposition home or self-care (01) | DRG 560 ==
LOC: M LDI 17:22 → M OBS 10-13 02:03
PROVIDERS: ADMIT Advanced Practice Midwife; ATTEND Advanced Practice Midwife
PROC: 3E033VJ Introduction of Other Hormone into Peripheral Vein, Percutaneous Approach (ICD-10-PCS; 2020-10-12)
PROC: 10E0XZZ Delivery of Products of Conception, External Approach (ICD-10-PCS; principal; 2020-10-13)
DX: O24.12 Pre-existing type 2 diabetes mellitus, in childbirth (principal); Z79.4 Long term (current) use of insulin; O99.334 Smoking (tobacco) complicating childbirth; F17.210 Nicotine dependence, cigarettes, uncomplicated; Z37.0 Single live birth

== ENCOUNTER → 2021-01-19 | Outpatient (REF) | payer OTHER ==
[~2021-01-19] MED LIST changes: +METF500T13 PO
[2021-01-19 12:09] LABS: RSV AMPLIFICATION NEGATIVE (NEGATIVE)
== END ==
LOC: M LAB REF 09:50
PROVIDERS: ATTEND Emergency Medicine
DX: Z20.828 Contact with and (suspected) exposure to other viral communicable diseases (principal); Z11.52 Encounter for screening for COVID-19

== ENCOUNTER → 2021-02-01 | Outpatient (CLI) | payer OTHER ==
[2021-02-01 18:17] LABS: BLOOD UREA NITROGEN 9 MG/DL (7-18); CREATININE FOR GFR 0.82 MG/DL (0.55-1.30); GLOMERULAR FILTRATION RATE > 60.0 (>60)
== END ==
LOC: M LAB 16:17
PROVIDERS: ATTEND Physician Assistant
DX: M54.16 Radiculopathy, lumbar region (principal); M43.16 Spondylolisthesis, lumbar region

== ENCOUNTER → 2021-02-03 | Outpatient (CLI) | payer OTHER ==
[~2021-02-03] MED LIST changes: +ISOVUE-370 76% 100ML VIAL ONE
--- NOTE | 2021-02-03 16:48 | REP ---
INDICATION: SPONDYLOLISTHESIS LUMBAR. COMPARISON: None. TECHNIQUE: 3 mm axial images were obtained through the lumbar spine prior to and following the infusion 100 cc of Isovue 370. sagittal and coronal images were obtained from the original data set. FINDINGS: L1/2: The foramina are adequate bilaterally. No significant disc bulge, herniation or central canal stenosis is evident. L2/3: The foramina are adequate bilaterally. No significant disc bulge, herniation or central canal stenosis is present. L3/4: The foramina are adequate bilaterally and no significant disc bulge, herniation or spinal stenosis is present L4/5: The foramina are adequate bilaterally. Mild diffuse disc bulge is present but no compromise of the exiting nerve rootlets source central canal is identified L5/S1: Bilateral pars defects are noted and there is a grade 2 spondylolisthesis of L5 on S1 of approximately 7.5 mm with significant disc space narrowing and eburnation in the adjacent endplates. No significant disc bulge is present. The foramina are moderately compromised bilaterally by hypertrophic changes associated with the spondylolysis though somewhat more pronounced on the right. No central canal stenosis is present. IMPRESSION: Grade 2 spondylolisthesis of L5 on S1 with moderate bilateral foraminal stenoses at the L5-S1 level somewhat more pronounced on the right. <Electronically signed by Woody Cee > 02/03/21 [id number]
== END ==
LOC: M PLAIMG 12:34
PROVIDERS: ATTEND Physician Assistant
DX: M43.17 Spondylolisthesis, lumbosacral region (principal)

== ENCOUNTER → 2021-02-22 | Outpatient (REF) ==
[~2021-02-22] MED LIST changes: +GABA-283 PO; -ISOVUE-370 76% 100ML VIAL ONE; +LAMI25TA PO; +TRAM1CAP15 PO
== END ==
LOC: M PLAIMG 08:56
PROVIDERS: ATTEND Internal Medicine
DX: M43.17 Spondylolisthesis, lumbosacral region (principal); M43.16 Spondylolisthesis, lumbar region

== ENCOUNTER 2021-05-23 06:01 | Day surgery (SDC) | payer OTHER ==
[~2021-05-23] VITALS: Ht 162.6 cm; Wt 79.4 kg
[~2021-05-23 06:01] MED LIST changes: +LR 1,000 ML IV ONE; +ceFAZolin SOD 2 GM in IV 1 EA IV ONE
[2021-05-23] MEDS ORDERED: LIDOCAINE 2% 100MG/5ML SDV (FOR ANES.) As Ordered ONE (07:18)
[2021-05-23] MEDS ORDERED: ONDANSETRON 4MG/2ML VIAL As Ordered ONE (07:18)
[2021-05-23] MEDS ORDERED: propofoL 200 MG/20 ML VIAL As Ordered ONE (07:18)
[2021-05-23] MEDS ORDERED: MIDAZOLAM INJ 2MG/2ML VIAL (J2250 PER 1MG) As Ordered ONE ×2 (07:20→08:15)
[2021-05-23] MEDS ORDERED: fentaNYL 100 MCG/2 ML INJECTION As Ordered ONE (07:20)
[2021-05-23] MEDS ORDERED: LIDOCAINE W/EPINEPHRINE 1% 20ML VIAL As Ordered ONE (07:27)
[2021-05-23] MEDS ORDERED: POVIDONE-IODINE 5% OPHTH PREP SOL 30ML As Ordered ONE (07:27)
[2021-05-23] MEDS ORDERED: LIDOCAINE 2% W/EPINEPHRINE 20ML VIAL **PRES FREE As Ordered ONE (07:27)
[2021-05-23] MEDS ORDERED: KETAMINE HCL 200 MG/20 ML VIAL As Ordered ONE (08:08)
[2021-05-23] MEDS ORDERED: POLYSPORIN OPHTH OINT 3.5 GM As Ordered ONE (08:14)
[2021-05-23] MEDS ORDERED: LACRILUBE (AKWA TEARS) OPHTH OINT 3.5 GM As Ordered ONE (08:29)
[2021-05-23] MEDS ORDERED: LR 1,000 ML IV SCH (09:00)
[2021-05-23] MEDS ORDERED: PERCOCET 5MG/325MG TAB PO PRN (09:00)
[2021-05-23] MEDS ORDERED: ONDANSETRON 4MG/2ML VIAL IV PRN (09:00)
[2021-05-23] MEDS ORDERED: fentaNYL 100 MCG/2 ML INJECTION IV PRN (09:00)
[2021-05-23] MEDS ORDERED: METOCLOPRAMIDE INJ 10MG/2ML VIAL (J2765 PER 1) IV PRN (09:00)
[2021-05-23 09:05] VITALS: BP 134/92
== END 2021-05-23 09:10 | disposition home or self-care (01) ==
LOC: M SDC 06:01
PROVIDERS: ATTEND Plastic Surgery Surgery of the Hand
DX: Z18.10 Retained metal fragments, unspecified (principal); E11.9 Type 2 diabetes mellitus without complications; F41.9 Anxiety disorder, unspecified; F32.9 Major depressive disorder, single episode, unspecified; J45.909 Unspecified asthma, uncomplicated; Z79.84 Long term (current) use of oral hypoglycemic drugs; Z79.899 Other long term (current) drug therapy; F17.218 Nicotine dependence, cigarettes, with other nicotine-induced disorders; E66.9 Obesity, unspecified; L40.9 Psoriasis, unspecified
CPT/HCPCS: 10120; 71045; 81025; 88300; J2250; J2405; J3010

== ENCOUNTER 2021-09-07 12:04 | Emergency (ER) | payer OTHER ==
[~2021-09-07] VITALS: Ht 162.6 cm; Wt 81.4 kg
[~2021-09-07 12:04] MED LIST changes: -LR 1,000 ML IV ONE; -ceFAZolin SOD 2 GM in IV 1 EA IV ONE
[2021-09-07] MEDS ORDERED: BUSP15TA47 (12:24)
[2021-09-07] MEDS ORDERED: ISOVUE-370 76% 100ML VIAL As Ordered ONE (12:28)
[2021-09-07] MEDS ORDERED: ONDANSETRON 4MG/2ML VIAL IV ONE (13:35)
[2021-09-07] MEDS ORDERED: NS 1,000 ML IV ONE (13:35)
[2021-09-07 13:52] VITALS: BP 127/82
[2021-09-07 13:55] LABS: BASO # 0.1 10^3/uL (0.0-0.2); BASO % 0.5 % (0.0-1.0); EOS # 0.1 10^3/uL (0.0-0.5); HEMATOCRIT 42.1 % (36.0-47.0); HEMOGLOBIN 14.3 g/dl (12.0-15.5); LYMPH # 2.3 10^3/uL (1.5-5.0); LYMPH % 21.9 % (24.0-44.0); MEAN CORPUSCULAR HEMOGLOBIN 29.9 pg (27.0-33.0); MEAN CORPUSCULAR VOLUME 87.9 fl (80.0-96.0); MONO # 0.6 10^3/uL (0.0-0.8); MONO % 5.8 % (2.0-8.0); NEUTROPHILS # 7.5 10^3/uL (1.5-8.5); NEUTROPHILS % 70.5 % (36.0-66.0); PLATELET COUNT, AUTOMATED 186 10^3/uL (150-450); RED BLOOD COUNT 4.79 10^6/uL (4.00-5.40); WHITE BLOOD COUNT 10.7 10^3/uL (4.0-10.0)
[2021-09-07 14:12] LABS: ALBUMIN 3.8 GM/DL (3.2-5.2); ALT/SGPT 23 U/L (12-78); BILIRUBIN,DIRECT < 0.1 MG/DL (0.0-0.2); BILIRUBIN,TOTAL 0.3 MG/DL (0.2-1.0); BLOOD UREA NITROGEN 6 MG/DL (7-18); CALCIUM LEVEL 10.2 MG/DL (8.5-10.1); CARBON DIOXIDE LEVEL 25 MEQ/L (21-32); CHLORIDE LEVEL 105 MEQ/L (98-107); CREATININE FOR GFR 0.58 MG/DL (0.55-1.30); GLOMERULAR FILTRATION RATE > 60.0 (>60); GLUCOSE, FASTING 93 MG/DL (70-100); LIPASE 132 U/L (73-393); POTASSIUM SERUM 4.2 MEQ/L (3.5-5.1); SODIUM LEVEL 137 MEQ/L (136-145); TOTAL PROTEIN 7.4 GM/DL (6.4-8.2)
[2021-09-07 14:23] LABS: FREE T4 1.01 NG/DL (0.76-1.46); THYROID STIMULATING HORMONE 0.461 uIU/ML (0.358-3.740)
[2021-09-07] MEDS ORDERED: CEFD300C PO (15:25)
[2021-09-07] MEDS ORDERED: ONDA4TAB6 PO (15:27)
== END 2021-09-07 15:56 | disposition home or self-care (01) ==
LOC: M ED 12:04
DX: N39.0 Urinary tract infection, site not specified (principal); E11.9 Type 2 diabetes mellitus without complications; J45.909 Unspecified asthma, uncomplicated; Z79.4 Long term (current) use of insulin; Z79.899 Other long term (current) drug therapy
CPT/HCPCS: 80048; 80076; 81001; 83690; 84439; 84443; 84702; 85025; 87088; 87186; 87486; 87581; 87633; 87798; 93005; 96361; 96374; 99284; J2405

== ENCOUNTER → 2021-09-19 | Outpatient (REF) | payer OTHER ==
[~2021-09-19] MED LIST changes: +BUSP15TA47; +CEFD300C PO; +ONDA4TAB6 PO
== END ==
LOC: M PLALAB 07:43
PROVIDERS: ATTEND Advanced Practice Midwife
DX: O24.311 Unspecified pre-existing diabetes mellitus in pregnancy, first trimester (principal); Z12.4 Encounter for screening for malignant neoplasm of cervix

== ENCOUNTER → 2021-10-07 | Outpatient (CLI) | payer OTHER ==
[2021-10-07 11:09] LABS: HEMATOCRIT 41.6 % (36.0-47.0); HEMOGLOBIN 13.8 g/dl (12.0-15.5); MEAN CORPUSCULAR HEMOGLOBIN 29.1 pg (27.0-33.0); MEAN CORPUSCULAR HGB CONC 33.2 g/dl (32.0-36.5); MEAN CORPUSCULAR VOLUME 87.8 fl (80.0-96.0); PLATELET COUNT, AUTOMATED 197 10^3/uL (150-450); RED BLOOD COUNT 4.74 10^6/uL (4.00-5.40); WHITE BLOOD COUNT 9.8 10^3/uL (4.0-10.0)
[2021-10-07 11:28] LABS: HEMOGLOBIN A1c 5.4 %
[2021-10-07 13:17] LABS: GC DNA AMPLIFICATION NEGATIVE (NEGATIVE)
== END ==
LOC: M LAB 09:57
PROVIDERS: ATTEND Advanced Practice Midwife
DX: O24.311 Unspecified pre-existing diabetes mellitus in pregnancy, first trimester (principal); Z3A.00 Weeks of gestation of pregnancy not specified

== ENCOUNTER → 2021-10-18 | Outpatient (REF) | payer OTHER | LOC: M SFHCWAGY 16:42 | PROVIDERS: ATTEND Obstetrics & Gynecology | DX: O24.312 Unspecified pre-existing diabetes mellitus in pregnancy, second trimester (principal) ==

== ENCOUNTER → 2021-12-04 | Outpatient (CLI) | payer OTHER | LOC: M WHC 10:04 | PROVIDERS: ATTEND Obstetrics & Gynecology | DX: Z34.82 Encounter for supervision of other normal pregnancy, second trimester (principal); Z3A.20 20 weeks gestation of pregnancy ==

== ENCOUNTER 2021-12-12 10:17 | Outpatient (CLI) | payer OTHER ==
[~2021-12-12] VITALS: Ht 162.6 cm; Wt 83.3 kg
== END 2021-12-12 13:00 | disposition home or self-care (01) ==
LOC: M LDO 10:17
PROVIDERS: ATTEND Specialist
DX: O98.512 Other viral diseases complicating pregnancy, second trimester (principal)

== ENCOUNTER → 2021-12-27 | Outpatient (REF) | payer OTHER ==
[2021-12-27 18:00] LABS: APPEARANCE, URINE MANUAL HAZY (CLEAR); COLOR, URINE MANUAL DK YELLOW (YELLOW)
[2021-12-27 18:01] LABS: BILIRUBIN, URINE MANUAL NEGATIVE (NEGATIVE); BLOOD URINE MANUAL NEGATIVE (NEGATIVE); GLUCOSE, URINE (UA) MANUAL 2+(250 MG/DL) mg/dL (NEGATIVE); KETONE, URINE MANUAL NEGATIVE (NEGATIVE); LEUKOCYTE ESTERASE, URINE MAN TRACE (NEGATIVE); NITRITE, URINE MANUAL POSITIVE (NEGATIVE); PROTEIN, URINE MANUAL TRACE mg/dL (NEGATIVE); UROBILINOGEN, URINE MANUAL NORMAL (NORMAL)
[2021-12-27 18:35] LABS: BACTERIA, URINE LARGE AMOUNT; CALCIUM OXALATE CRYSTALS,URINE MOD AMOUNT /hpf; HYALINE CAST, URINE NONE SEEN /lpf (0-1); RBC, URINE 0-1 /hpf (0-3); SQUAMOUS EPITHELIAL CELL URINE SMALL AMOUNT /hpf (SMALL AMT)
== END ==
LOC: M SFHCWAGY 16:56
PROVIDERS: ATTEND Advanced Practice Midwife
DX: O24.312 Unspecified pre-existing diabetes mellitus in pregnancy, second trimester (principal)

== ENCOUNTER → 2022-01-04 | Outpatient (CLI) | payer OTHER | LOC: M WHC 10:53 | PROVIDERS: ATTEND Advanced Practice Midwife | DX: O24.312 Unspecified pre-existing diabetes mellitus in pregnancy, second trimester (principal); Z3A.25 25 weeks gestation of pregnancy ==

== ENCOUNTER → 2022-01-19 | Outpatient (CLI) | payer OTHER ==
[2022-01-19 14:56] LABS: HEMATOCRIT 37.8 % (36.0-47.0); HEMOGLOBIN 12.7 g/dl (12.0-15.5); MEAN CORPUSCULAR HEMOGLOBIN 31.4 pg (27.0-33.0); MEAN CORPUSCULAR HGB CONC 33.6 g/dl (32.0-36.5); MEAN CORPUSCULAR VOLUME 93.6 fl (80.0-96.0); PLATELET COUNT, AUTOMATED 155 10^3/uL (150-450); RED BLOOD COUNT 4.04 10^6/uL (4.00-5.40); WHITE BLOOD COUNT 13.3 10^3/uL (4.0-10.0)
[2022-01-19 16:31] LABS: GC DNA AMPLIFICATION NEGATIVE (NEGATIVE)
== END ==
LOC: M PLALAB 10:18
PROVIDERS: ATTEND Obstetrics & Gynecology
DX: Z34.82 Encounter for supervision of other normal pregnancy, second trimester (principal); Z3A.22 22 weeks gestation of pregnancy

== ENCOUNTER → 2022-02-23 | Outpatient (CLI) | payer OTHER | LOC: M WHC 09:27 | PROVIDERS: ATTEND Obstetrics & Gynecology | DX: O24.312 Unspecified pre-existing diabetes mellitus in pregnancy, second trimester (principal); Z3A.32 32 weeks gestation of pregnancy ==

== ENCOUNTER → 2022-03-13 | Outpatient (REF) | payer OTHER | LOC: M PLALAB 10:08 | PROVIDERS: ATTEND Obstetrics & Gynecology | DX: Z3A.35 35 weeks gestation of pregnancy (principal) ==

== ENCOUNTER 2022-03-22 07:11 | Outpatient (CLI) | payer OTHER ==
[~2022-03-22] VITALS: Ht 162.6 cm; Wt 83.9 kg
[2022-03-22 07:27] VITALS: BP 133/94
[2022-03-22 07:42] VITALS: BP 123/76
[2022-03-22] MEDS ORDERED: ACET-897 PO (08:03)
[2022-03-22] MEDS ORDERED: NOVOINJ13 SC (08:03)
[2022-03-22] MEDS ORDERED: PERCOCET 5MG/325MG TAB PO ONE (08:05)
[2022-03-22] MEDS ORDERED: INSURSD SC (08:08)
[2022-03-22 08:41] LABS: TOTAL PROTEIN,RANDOM URINE 6.3 MG/DL (0.0-14.0)
[2022-03-22 08:44] VITALS: BP 128/80
[2022-03-22 08:44] LABS: HEMOGLOBIN 11.6 g/dl (12.0-15.5); MEAN CORPUSCULAR HEMOGLOBIN 30.7 pg (27.0-33.0); MEAN CORPUSCULAR HGB CONC 33.1 g/dl (32.0-36.5); MEAN CORPUSCULAR VOLUME 92.6 fl (80.0-96.0); PLATELET COUNT, AUTOMATED 212 10^3/uL (150-450); RED BLOOD COUNT 3.78 10^6/uL (4.00-5.40); WHITE BLOOD COUNT 14.5 10^3/uL (4.0-10.0)
[2022-03-22 08:47] LABS: CREATININE,RANDOM URINE 32.3 MG/DL
[2022-03-22 09:27] LABS: ALBUMIN 2.4 G/DL (3.2-5.2); ALKALINE PHOSPHATASE 161 U/L (46-116); ALT/SGPT 32 U/L (7.0-40); AST/SGOT 22 U/L (<34); BILIRUBIN,TOTAL 0.2 MG/DL (0.3-1.2); BLOOD UREA NITROGEN < 5 MG/DL (9-23); CALCIUM LEVEL 8.7 MG/DL (8.5-10.1); CARBON DIOXIDE LEVEL 22 MMOL/L (20-31); CHLORIDE LEVEL 106 MMOL/L (98-107); CREATININE FOR GFR 0.39 MG/DL (0.55-1.30); GLOMERULAR FILTRATION RATE > 60.0 (>60); GLUCOSE, FASTING 119 MG/DL (60-100); POTASSIUM SERUM 3.7 MMOL/L (3.5-5.1); SODIUM LEVEL 137 MMOL/L (136-145); TOTAL PROTEIN 5.8 G/DL (5.7-8.2)
[2022-03-22] MEDS ORDERED: ESGI1TAB PO (11:44)
== END 2022-03-22 12:09 | disposition home or self-care (01) ==
LOC: M LDO 07:11
PROVIDERS: ATTEND Specialist
DX: O26.893 Other specified pregnancy related conditions, third trimester (principal); R51.9 Headache, unspecified; O24.113 Pre-existing type 2 diabetes mellitus, in pregnancy, third trimester; Z79.4 Long term (current) use of insulin; O99.333 Smoking (tobacco) complicating pregnancy, third trimester; F17.210 Nicotine dependence, cigarettes, uncomplicated; Z3A.36 36 weeks gestation of pregnancy

== ENCOUNTER 2022-03-25 12:02 | Inpatient (IN) | payer OTHER ==
[~2022-03-25] VITALS: Ht 162.6 cm; Wt 82.7 kg
[2022-03-25] VITALS (17 sets, daily range): BP systolic 85–122; BP diastolic 49–92
[~2022-03-25 12:02] MED LIST changes: +ACET-897 PO; +ESGI1TAB PO; +NOVOINJ13 SC
[2022-03-25] MEDS ORDERED: PREN1CAP15 PO (12:34)
[2022-03-25] MEDS ORDERED: INSULIN IV RATE CHANGE DOCUMENTATION ML/HR XX SCH (15:20)
[2022-03-25] MEDS ORDERED: LIDOCAINE 1% MDV 20ML VIAL INFIL PRN (15:20)
[2022-03-25] MEDS ORDERED: CARBOPROST TROMETHAMINE 250 MCG/ML AMP IM PRN (15:20)
[2022-03-25] MEDS ORDERED: METHYLERGONOVINE MALEATE 0.2 MG/ML VIAL (J2210) IM PRN (15:20)
[2022-03-25] MEDS ORDERED: NS 1,000 ML IV SCH (15:20)
[2022-03-25] MEDS ORDERED: miSOPROStol 50MCG 1/2 TABLET PO ONE (15:20)
[2022-03-25] MEDS ORDERED: TRANEXAMIC ACID INJection 1,000 MG in NS 100 ML IV PRN (15:20)
[2022-03-25 16:12] LABS: HEMATOCRIT 33.4 % (36.0-47.0); HEMOGLOBIN 11.4 g/dl (12.0-15.5); MEAN CORPUSCULAR HEMOGLOBIN 31.1 pg (27.0-33.0); MEAN CORPUSCULAR HGB CONC 34.1 g/dl (32.0-36.5); PLATELET COUNT, AUTOMATED 233 10^3/uL (150-450); RED BLOOD COUNT 3.67 10^6/uL (4.00-5.40); WHITE BLOOD COUNT 14.1 10^3/uL (4.0-10.0)
[2022-03-25] MEDS: INSULIN REGULAR IN 0.9 % NACL 100 UNIT in IV 1 EA IV SCH ×4 (16:23→21:53)
[2022-03-25 17:00] LABS: AMPHETAMINES URINE REFLEX NEGATIVE (NEGATIVE); BENZODIAZEPINES URINE REFLEX NEGATIVE (NEGATIVE); CANNABINOIDS URINE REFLEX NEGATIVE (NEGATIVE); COCAINE METABOLITE URINE REFLE NEGATIVE (NEGATIVE); METHADONE URINE REFLEX NEGATIVE (NEGATIVE); OPIATES URINE REFLEX NEGATIVE (NEGATIVE); PHENCYCLIDINE URINE REFLEX NEGATIVE (NEGATIVE)
[2022-03-25 17:25] LABS: BARBITURATES URINE REFLEX PENDING CONFIRMATION (NEGATIVE)
[2022-03-25] MEDS ORDERED: OXYTOCIN 30UNITS IN 0.9% NaCl 500ML IV BAG As Ordered ONE (20:05)
[2022-03-25] MEDS ORDERED: OXYTOCIN DRIP 30 UNITS in IV 1 EA IV SCH (20:05)
[2022-03-25] MEDS ORDERED: diphenhydrAMINE 50MG/ML VIAL IV PRN (20:25)
[2022-03-25] MEDS ORDERED: ePHEDrine SULFATE 25 MG/5 ML(5MG/ML) SYRINGE IVP PRN (20:25)
[2022-03-25] MEDS ORDERED: ONDANSETRON 4MG 2ML VIAL IV PRN (20:25)
[2022-03-25] MEDS ORDERED: LR 500 ML IV PRN (20:25)
[2022-03-25] MEDS ORDERED: FENTANYL/ROPIVACAINE/NACL BAG 100 ML EPIDURAL SCH (20:25)
[2022-03-25] MEDS ORDERED: NALOXONE INJ 0.4MG/1ML VIAL IV PRN (20:25)
[2022-03-25] MEDS ORDERED: EPIDURAL/PCA KEYS XX PRN (20:25)
[2022-03-26] VITALS (23 sets, daily range): BP systolic 82–135; BP diastolic 50–68
[2022-03-26] MEDS ORDERED: ONDANSETRON 4MG 2ML VIAL IV PRN (07:35)
[2022-03-26] MEDS ORDERED: DOCUSATE SODIUM 100MG CAPSULE PO PRN (07:35)
[2022-03-26] MEDS ORDERED: ACETAMINOPHEN TAB 650MG DOSE (2X325MG) PO PRN (07:35)
[2022-03-26] MEDS ORDERED: LR 1,000 ML IV SCH (07:35)
[2022-03-26] MEDS ORDERED: DIBUCAINE 1% OINTMENT 30GM TOP PRN (07:35)
[2022-03-26] MEDS ORDERED: RHOGAM 300MCG (1500IU) INJ IM SCH (07:35)
[2022-03-26] MEDS ORDERED: IBUPROFEN 600MG TAB PO PRN (07:35)
[2022-03-26] MEDS ORDERED: IBUPROFEN 800 MG TAB PO PRN (07:35)
[2022-03-26] MEDS ORDERED: METHYLERGONOVINE MALEATE 0.2 MG TAB PO PRN (07:35)
[2022-03-26] MEDS ORDERED: ACETAMINOPHEN 500 MG TAB PO PRN (07:35)
[2022-03-26] MEDS ORDERED: OXYTOCIN DRIP 30 UNITS in IV 1 EA IV SCH (07:35)
[2022-03-26] MEDS ORDERED: HOME MED LIST COMPLETE! XX SCH (10:15)
[2022-03-26] MEDS ORDERED: METF500T13 PO (10:41)
[2022-03-26] MEDS: PRENATAL VITAMINS CHEWABLE TABLET PO SCH (10:47)
[2022-03-26] MEDS: metFORMIN (GLUCOPHAGE) 500MG TAB PO SCH ×2 (10:48→18:04)
[2022-03-26] MEDS: NICOTINE 14 MG/24 HR TRANSDERMAL TD SCH (15:35)
[2022-03-27 06:00] VITALS: BP 125/86
[2022-03-27] MEDS: NICOTINE 14 MG/24 HR TRANSDERMAL TD SCH (08:15)
[2022-03-27] MEDS: metFORMIN (GLUCOPHAGE) 500MG TAB PO SCH (08:15)
[2022-03-27] MEDS: PRENATAL VITAMINS CHEWABLE TABLET PO SCH (08:16)
[2022-03-27] MEDS ORDERED: IBUP-1022 PO (11:46)
[2022-03-27] MEDS ORDERED: COLA100C5 PO (11:46)
[2022-03-27] MEDS ORDERED: ACET-683 PO (11:46)
[2022-03-28] MEDS ORDERED: MEASLES,MUMPS,RUBELLA VACCINE INJ (MMR-II) SC.IMMUN ONE (09:00)
[2022-04-03 16:08] LABS: Amobarbital Negative (Cutoff=200); Barbiturates Positive (.); Butalbital Positive (.); Pentobarbital Negative (Cutoff=200); Secobarbital Negative (Cutoff=200)
== END 2022-03-27 12:50 | disposition home or self-care (01) | DRG 560 ==
LOC: M LDI 12:02 → M OBS 03-26 09:53
PROVIDERS: ADMIT Obstetrics & Gynecology; ATTEND Obstetrics & Gynecology
PROC: 10E0XZZ Delivery of Products of Conception, External Approach (ICD-10-PCS; 2022-03-25)
PROC: 3E0DXGC Introduction of Other Therapeutic Substance into Mouth and Pharynx, External Approach (ICD-10-PCS; 2022-03-25)
PROC: 10907ZC Drainage of Amniotic Fluid, Therapeutic from Products of Conception, Via Natural or Artificial Opening (ICD-10-PCS; principal; 2022-03-26)
DX: O24.12 Pre-existing type 2 diabetes mellitus, in childbirth (principal); O99.344 Other mental disorders complicating childbirth; F31.9 Bipolar disorder, unspecified; Z37.0 Single live birth; Z3A.37 37 weeks gestation of pregnancy; F17.200 Nicotine dependence, unspecified, uncomplicated; O99.334 Smoking (tobacco) complicating childbirth; Z79.4 Long term (current) use of insulin; F41.9 Anxiety disorder, unspecified; Z79.899 Other long term (current) drug therapy

== ENCOUNTER 2022-11-14 15:38 | Emergency (ER) | payer OTHER ==
[~2022-11-14 15:38] MED LIST changes: +ACET-683 PO; +COLA100C5 PO; -GABA-283 PO; +GABA-284 PO; +IBUP-1022 PO; +PREN1CAP15 PO
[2022-11-14 17:27] LABS: BASO # 0.1 10^3/uL (0.0-0.2); BASO % 0.5 % (0.0-1.0); EOS # 0.1 10^3/uL (0.0-0.5); EOS % 1.1 % (0.0-3.0); HEMATOCRIT 41.4 % (36.0-47.0); HEMOGLOBIN 14.1 g/dl (12.0-15.5); LYMPH # 2.4 10^3/uL (1.5-5.0); LYMPH % 25.6 % (24.0-44.0); MEAN CORPUSCULAR HEMOGLOBIN 29.4 pg (27.0-33.0); MEAN CORPUSCULAR HGB CONC 34.1 g/dl (32.0-36.5); MEAN CORPUSCULAR VOLUME 86.3 fl (80.0-96.0); MONO # 0.5 10^3/uL (0.0-0.8); MONO % 5.2 % (2.0-8.0); NEUTROPHILS # 6.3 10^3/uL (1.5-8.5); NEUTROPHILS % 67.4 % (36.0-66.0); PLATELET COUNT, AUTOMATED 252 10^3/uL (150-450); WHITE BLOOD COUNT 9.4 10^3/uL (4.0-10.0)
[2022-11-14 17:39] LABS: LIPASE 34 U/L (12-53)
[2022-11-14 17:42] LABS: ALKALINE PHOSPHATASE 81 U/L (46-116); ALT/SGPT 17 U/L (7.0-40); AST/SGOT 11 U/L (<34); BILIRUBIN,DIRECT 0.1 MG/DL (<0.4); BILIRUBIN,TOTAL 0.4 MG/DL (0.3-1.2); BLOOD UREA NITROGEN 7 MG/DL (9-23); CALCIUM LEVEL 9.7 MG/DL (8.5-10.1); CARBON DIOXIDE LEVEL 27 MMOL/L (20-31); CHLORIDE LEVEL 104 MMOL/L (98-107); CREATININE FOR GFR 0.63 MG/DL (0.55-1.30); GLOMERULAR FILTRATION RATE > 60.0 (>60); GLUCOSE, FASTING 94 MG/DL (60-100); POTASSIUM SERUM 3.3 MMOL/L (3.5-5.1); SODIUM LEVEL 140 MMOL/L (136-145); TOTAL PROTEIN 7.2 G/DL (5.7-8.2)
[2022-11-14 20:28] LABS: HCG, SERUM QUALITATIVE NEGATIVE (NEGATIVE)
[2022-11-14 21:21] VITALS: TEMP 98.5
[2022-11-14] MEDS ORDERED: diphenhydrAMINE 50MG/ML VIAL IV STA (21:33)
[2022-11-14] MEDS ORDERED: METOCLOPRAMIDE INJ 10MG/2ML VIAL IV ONE (21:35)
[2022-11-14] MEDS ORDERED: dexAMETHasone 20MG/5ML VIAL IV ONE (21:35)
[2022-11-14] MEDS ORDERED: NS 1,000 ML IV ONE (21:35)
[2022-11-14 23:05] VITALS: BP 138/84; O2SAT 98
[2022-11-15] MEDS ORDERED: REGL10TA6 PO (00:19)
== END 2022-11-15 00:31 | disposition home or self-care (01) ==
LOC: M ED 15:38
DX: R50.9 Fever, unspecified (principal); R11.2 Nausea with vomiting, unspecified; E11.9 Type 2 diabetes mellitus without complications; J45.909 Unspecified asthma, uncomplicated; F10.10 Alcohol abuse, uncomplicated; Z79.4 Long term (current) use of insulin; Z79.810 Long term (current) use of selective estrogen receptor modulators (SERMs); Z79.899 Other long term (current) drug therapy
CPT/HCPCS: 70450; 80048; 80076; 81001; 83690; 84703; 85025; 87086; 96361; 96374; 99284; J1100; J1200; J2765

== ENCOUNTER → 2024-06-22 | Outpatient (REF) | payer OTHER ==
[~2024-06-22] MED LIST changes: +INSU100V19 SC; -INSURSD SC; +ONDA-282 PO; -ONDA4TAB6 PO
[2024-06-22 18:51] LABS: ALBUMIN 3.7 G/DL (3.2-5.2); ALKALINE PHOSPHATASE 102 U/L (35-104); ALT/SGPT 51 U/L (7.0-40); AST/SGOT 29 U/L (<34); BILIRUBIN,TOTAL 0.2 MG/DL (0.3-1.2); BLOOD UREA NITROGEN 6 MG/DL (9-23); CALCIUM LEVEL 9.8 MG/DL (8.5-10.1); CARBON DIOXIDE LEVEL 27 MMOL/L (20-31); CHLORIDE LEVEL 106 MMOL/L (98-107); CHOLESTEROL LEVEL 167 MG/DL (<200); CHOLESTEROL RISK RATIO 3.51 (<5); CREATININE FOR GFR 0.56 MG/DL (0.55-1.30); GLOMERULAR FILTRATION RATE > 60.0 (>60); GLUCOSE, FASTING 90 MG/DL (60-100); HDL CHOLESTEROL 47.5 MG/DL (>40); LDL CHOLESTEROL 95.9 MG/DL (<100); NON-HDL-C 119.5 MG/DL; SODIUM LEVEL 140 MMOL/L (136-145); TOTAL PROTEIN 7.7 G/DL (5.7-8.2); TRIGLYCERIDES LEVEL 118 MG/DL (<150)
[2024-06-22 18:53] LABS: THYROID STIMULATING HORMONE 1.513 uIU/ML (0.55-4.78)
[2024-06-22 18:54] LABS: BASO # 0.1 10^3/uL (0.0-0.2); BASO % 0.6 % (0.0-1.0); EOS # 0.2 10^3/uL (0.0-0.5); EOS % 2.3 % (0.0-3.0); HEMATOCRIT 43.3 % (36.0-47.0); HEMOGLOBIN 14.4 g/dl (12.0-15.5); LYMPH # 2.9 10^3/uL (1.5-5.0); LYMPH % 30.1 % (24.0-44.0); MEAN CORPUSCULAR HEMOGLOBIN 29.2 pg (27.0-33.0); MEAN CORPUSCULAR HGB CONC 33.3 g/dl (32.0-36.5); MEAN CORPUSCULAR VOLUME 87.8 fl (80.0-96.0); MONO # 0.6 10^3/uL (0.0-0.8); MONO % 5.6 % (2.0-8.0); NEUTROPHILS % 61.1 % (36.0-66.0); PLATELET COUNT, AUTOMATED 258 10^3/uL (150-450); RED BLOOD COUNT 4.93 10^6/uL (4.00-5.40); WHITE BLOOD COUNT 9.8 10^3/uL (4.0-10.0)
[2024-06-22 19:10] LABS: CREATININE, URINE 162.6 MG/DL; MAU/CREAT RATIO 6.1 MCG/MG (0.0-30.0)
[2024-06-22 19:16] LABS: HEMOGLOBIN A1c 5.4 % (4.0-6.0)
== END ==
LOC: M LAB REF 17:26
PROVIDERS: ATTEND Nurse Practitioner Family
DX: Z11.9 Encounter for screening for infectious and parasitic diseases, unspecified (principal); E66.3 Overweight; R53.83 Other fatigue; R06.83 Snoring

== ENCOUNTER → 2024-06-25 | Outpatient (CLI) | payer OTHER | LOC: M RAD 09:04 | PROVIDERS: ATTEND Nurse Practitioner Family | DX: R06.2 Wheezing (principal) ==

== ENCOUNTER → 2024-08-06 | Outpatient (REF) | payer OTHER ==
[2024-08-06 13:25] LABS: APPEARANCE, URINE HAZY (CLEAR); BACTERIA, URINE AUTO 1+ (NEGATIVE); BILIRUBIN, URINE AUTO NEGATIVE (NEGATIVE); BLOOD, URINE BLOOD 1+ (NEGATIVE); COLOR, URINE YELLOW (YELLOW); GLUCOSE, URINE (UA) AUTO NEGATIVE (NEGATIVE); KETONE, URINE AUTO TRACE mg/dL (NEGATIVE); LEUKOCYTE ESTERASE, URINE AUTO TRACE (NEGATIVE); MUCUS, URINE SMALL (NEGATIVE); NITRITE, URINE AUTO NEGATIVE (NEGATIVE); PROTEIN, URINE AUTO NEGATIVE (NEGATIVE); RBC, URINE AUTO 2 /HPF (0-3); SPECIFIC GRAVITY URINE AUTO 1.025 (1.002-1.035); SQUAMOUS EPITHELIAL CELL UR AU 3 /HPF (0-6); WBC, URINE AUTO 5 /HPF (0-3)
== END ==
LOC: M SMT 12:46
PROVIDERS: ATTEND Specialist
DX: N39.46 Mixed incontinence (principal)

== ENCOUNTER → 2024-11-10 | Outpatient (CLI) | payer OTHER ==
[~2024-11-10] MED LIST changes: -PROZ20CA11 PO; +PROZ20CA12 PO
== END ==
LOC: M SLEEP HO 10:31
PROVIDERS: ATTEND Nurse Practitioner Adult Health
DX: G47.33 Obstructive sleep apnea (adult) (pediatric) (principal)

== ENCOUNTER → 2025-01-07 | Outpatient (REF) | payer OTHER ==
[~2025-01-07] MED LIST changes: -IBUP-1022 PO; +IBUP600T42 PO
[2025-01-09 12:18] LABS: HPV APTIMA Not Detected (Not Detected)
== END ==
LOC: M PLALAB 11:50
PROVIDERS: ATTEND Physician Assistant
DX: Z12.4 Encounter for screening for malignant neoplasm of cervix (principal)

== ENCOUNTER → 2025-01-13 | Outpatient (CLI) | payer OTHER | LOC: M RAD 10:09 | PROVIDERS: ATTEND Obstetrics & Gynecology | DX: N81.3 Complete uterovaginal prolapse (principal) ==

== ENCOUNTER → 2025-01-29 | Outpatient (CLI) | payer OTHER ==
[~2025-01-29] MED LIST changes: +ADVA1AER10 INH; +ALBU2.5V10 INH; -BUSP15TA47; +BUSP15TA47 PO; +CETI10CH PO; +FAMO20TA4 PO; +FLUT50SP33; +MONT10TA97 PO; +MYRB25TA PO; +PROA1AER2 INH; +SERT-141 PO; +TELM1TAB33 PO; +TRAZ-189 PO
[2025-01-29 10:00] LABS: CALCIUM LEVEL 9.2 MG/DL (8.5-10.1); CARBON DIOXIDE LEVEL 24 MMOL/L (20-31); CHLORIDE LEVEL 112 MMOL/L (98-107); CREATININE FOR GFR 0.66 MG/DL (0.55-1.30); GLOMERULAR FILTRATION RATE > 90.0 (>60); POTASSIUM SERUM 3.8 MMOL/L (3.5-5.1); SODIUM LEVEL 143 MMOL/L (136-145)
== END ==
LOC: M EKG 08:25
PROVIDERS: ATTEND Anesthesiology
DX: R79.89 Other specified abnormal findings of blood chemistry (principal)

== ENCOUNTER → 2025-02-02 | Outpatient (REF) | payer OTHER ==
[2025-02-02 14:30] LABS: BASO # 0.1 10^3/uL (0.0-0.2); BASO % 0.8 % (0.0-1.0); EOS # 0.2 10^3/uL (0.0-0.5); EOS % 2.0 % (0.0-3.0); LYMPH # 2.7 10^3/uL (1.5-5.0); LYMPH % 34.2 % (24.0-44.0); MONO # 0.4 10^3/uL (0.0-0.8); MONO % 5.4 % (2.0-8.0); NEUTROPHILS # 4.6 10^3/uL (1.5-8.5); NEUTROPHILS % 57.3 % (36.0-66.0); PLATELET COUNT, AUTOMATED 208 10^3/uL (150-450)
== END ==
LOC: M LAB REF 13:58
PROVIDERS: ATTEND Nurse Practitioner Family
DX: Z01.818 Encounter for other preprocedural examination (principal)

== ENCOUNTER 2025-02-08 07:52 | Day surgery (SDC) | payer OTHER ==
[~2025-02-08] VITALS: Ht 162.6 cm; Wt 90.1 kg
[~2025-02-08 07:52] MED LIST changes: +ROCURONIUM BROMIDE 50MG/5ML VIAL As Ordered ONE
[2025-02-08] MEDS ORDERED: ONDANSETRON 4MG/2ML VIAL As Ordered ONE (08:24)
[2025-02-08] MEDS ORDERED: LIDOCAINE 2% 100 MG/5 ML SDV (FOR ANES.) As Ordered ONE (08:24)
[2025-02-08] MEDS ORDERED: KETOROLAC 30 MG/ML 1 ML VIAL As Ordered ONE (08:24)
[2025-02-08] MEDS ORDERED: dexAMETHasone 4 MG/ML 1 ML VIAL As Ordered ONE (08:25)
[2025-02-08] MEDS ORDERED: MIDAZOLAM INJ 2 MG/2 ML VIAL As Ordered ONE (08:28)
[2025-02-08] MEDS: LR 1,000 ML IV SCH (08:30)
[2025-02-08 10:19] LABS: PLATELET COUNT, AUTOMATED 165 10^3/uL (150-450)
[2025-02-08] MEDS: ceFAZolin SOD 2 GM IV ONCE IV ONE (10:20)
[2025-02-08] MEDS ORDERED: ACETAMINOPHEN 1000MG/100ML IV BAG As Ordered ONE (10:33)
[2025-02-08] MEDS ORDERED: SUGAMMADEX SODIUM 200 MG/2 ML VIAL As Ordered ONE (10:52)
[2025-02-08] MEDS ORDERED: HYDROmorphone HCL 2 MG/ML 1 ML VIAL As Ordered ONE (11:09)
[2025-02-08] MEDS ORDERED: ALBUTEROL 6.7 GM INHALER **FOR ANES. CART/OMNICELL ONLY As Ordered ONE (11:27)
[2025-02-08] MEDS ORDERED: ONDANSETRON 4MG/2ML VIAL IV PRN (12:55)
[2025-02-08] MEDS ORDERED: HYDROMORPHONE HCL 0.5 MG/0.5 ML SYRINGE IV PRN (12:55)
[2025-02-08] MEDS ORDERED: LR 1,000 ML IV SCH (12:55)
[2025-02-08 15:25] VITALS: BP 136/76; TEMP 97.2; O2SAT 97
== END 2025-02-08 18:50 | disposition home or self-care (01) ==
LOC: M SDC 07:52
PROVIDERS: ATTEND Obstetrics & Gynecology
DX: N81.4 Uterovaginal prolapse, unspecified (principal); N80.03 Adenomyosis of the uterus; N39.46 Mixed incontinence; E11.9 Type 2 diabetes mellitus without complications; I10 Essential (primary) hypertension; J45.909 Unspecified asthma, uncomplicated; K76.0 Fatty (change of) liver, not elsewhere classified; G47.30 Sleep apnea, unspecified; Z79.899 Other long term (current) drug therapy; Z79.84 Long term (current) use of oral hypoglycemic drugs; F17.210 Nicotine dependence, cigarettes, uncomplicated; K21.9 Gastro-esophageal reflux disease without esophagitis
CPT/HCPCS: 36415; 57250; 57288; 58571; 81025; 85027; 86850; 86900; 86901; 88302; 88307; C1771; J0131; J0665; J0688; J1100; J1171; J1885; J2250; J2405; J3010; S2900